=== PATIENT | male | born 1960 | race Caucasian/White ===

== ENCOUNTER → 2017-01-19 | Outpatient (CLI) | payer OTHER | LOC: FLAB 09:41 | PROVIDERS: ATTEND Surgery | DX: Z96.89 Presence of other specified functional implants (principal); R91.1 Solitary pulmonary nodule ==

== ENCOUNTER 2017-05-24 17:27 | Inpatient (IN) | payer OTHER ==
[2017-05-24] MEDS ORDERED: ERTAPENEM 1 GM VIAL IVP ONE (17:47)
--- NOTE | 2017-05-24 17:47 | EDPHY ---
H & P Stated Complaint: Fever,back pain;sent by [facility] with elevated bilirubin Time Seen by Provider: 05/24/17 17:39 - Personal History Current Tetanus Diphtheria and Acellular Pertussis (TDAP): No - Medical/Surgical History Other PMH: pancreatic cancer - Social History Smoking Status: Never smoked Constitutional: Initial Vital Signs Temperature (C) 36.7 C 05/24/17 17:35 Heart Rate 86 05/24/17 17:35 Respiratory Rate 18 05/24/17 17:35 Blood Pressure 96/73 L 05/24/17 17:35 O2 Sat (%) 96 05/24/17 17:35 O2 Delivery Mode Room Air Allergies/Adverse Reactions: azithromycin [From Zithromax] Adverse Reaction (Mild, Verified 05/24/17 17:34) Rash "GD IV contrast" Allergy (Mild, Uncoded 05/24/17 17:34) cough Home Medications: Medication Instructions Recorded Omeprazole [Prilosec 20 mg] 20 mg PO DAILY 05/24/17 Medical Decision Making ED Course/Re-evaluation: CHIEF COMPLAINT: Fever, increasing jaundice, hx pancreatic cancer HISTORY OF PRESENT ILLNESS: The patient is a 57 y/o male with active stage 3 pancreatic adenocarcinoma complaining of fever, chills, and increasing jaundice onset this morning around 09:00, about 9 hours ago. His cancer is currently being treated with radiation and chemotherapy and is considered inoperable and he had a pancreatic duct stent placed in January. This morning he developed acute onset chills, fever, and diffuse sharp abdominal pain. The pain subsided after 10 minutes, but his chills and fever persisted so he went to see his oncologist. He had labs drawn at their office that showed elevated pancreatic and LFT enzymes indicating likely cholangitis. He returned home and around noon had a fever of 102.6F that they treated with Tylenol. His jaundice also appears worse to him and his today. He last ate at 06:45 this morning. He denies nausea, vomiting, diaphoresis, chest pain, dyspnea. REVIEW OF SYSTEMS: A 10 point review of systems was performed and is negative with the exception of the elements mentioned in the history of present illness. PHYSICAL EXAM: HR, BP, O2 Sat, RR. Temp noted General Appearance: Alert, well hydrated, appropriate, and non-toxic appearing. Head: Atraumatic without scalp tenderness or obvious injury Eyes: Pupils equal, round, reactive to light and accommodation, EOMI, no trauma , no injection. Ears: Clear bilaterally, no perforation, normal landmarks Nose: Atraumatic, no rhinorrhea, clear. Throat: There is no erythema or exudates, no lesions, normal tonsils, mucus membranes moist. Neck: Supple,non-tender, no lymphadenopathy. Respiratory: No retractions, no distress, no wheezes, and no accessory muscle use. Lungs are clear to auscultation bilaterally. Cardiovascular: Regular rate and rhythm, no murmurs, rubs, or gallops. Good capillary refill all extremities. Gastrointestinal: Abdomen is soft, non-tender, non-distended, no masses, no rebound, no guarding, no peritoneal signs. Musculoskeletal: Normal active ROM of all extremities, atraumatic. Neurological: Alert, appropriate, and interactive. The patient has non-focal cranial nerves, motor, sensory, and cerebellar exam. Skin: No rashes, good turgor, no nodules on palpation. Jaundiced. PAST MEDICAL HISTORY: Inoperable stage 3 adenocarcinoma treated with radiation and chemotherapy PAST SURGICAL HISTORY: Pancreatic duct stent placed 01/07/17 SOCIAL HISTORY: at bedside. Lives in [place]. Oncologist: Dr. Dukes at [facility]. Reviewed outpatient lab work from today and spoke with [facility] physician prior to pt arrival. DIFFERENTIAL DIAGNOSIS: The differential diagnosis for the patient's fever included but was not limited to pneumonia, urinary tract infection, viral syndrome, meningitis, and sepsis. MEDICAL DECISION MAKING: This is a 57 y/o male with stage 3 pancreatic cancer who presents with a 9-hour history of acute onset fever, chills, and transient abdominal pain. His labs from his oncologist visit today show elevated WBC with left shift, elevated bilirubin, elevated LFTs, and elevated alkaline phosphatase which indicate biliary obstruction and cholangitis that could represent obstruction of his pancreatic stent. He is mildly jaundiced on exam. He has a benign abdomen and is afebrile here. Plan for blood cultures, coag, and lactate here. 1gm IV Ertapenem administered for cholangitis. No further imaging at this time. Patient will require admission. GI paged. 184: GI re-paged after 30 minutes. 1904: GI paged for the 3rd time. 1906: Consulted with RICKEY Hicks. He will follow patient during admission and their group will provide intervention if needed. Spoke with hospitalist service. Dr. Dempsey accepts admission to Med-Surg. - Data Points Laboratory Results: 05/24/17 05/24/17 18:15 16:15 PT 13.1 SEC SEC (12.0-15.0) INR 0.97 (0.83-1.16) APTT 28.9 SEC SEC (23.0-38.0) VBG Lactic Acid 1.2 mmol/L mmol/L (0.7-2.1) Medications Given: Discontinued Medications Ertapenem (Invanz) 1 gm IVP EDNOW ONE PRN Reason: Protocol Stop: 05/24/17 17:48 Last Admin: 05/24/17 18:24 Dose: 1 gm Departure - Departure Disposition: [facility] Inpatient Acute Clinical Impression: Cholangitis, Pancreatic adenocarcinoma Condition: Fair Referrals: RUTH CANTU [Other] - As per Instructions Report Scribed for: Immanuel Solis Report Scribed by: Niyah Biggs Date of Report: 05/24/17 Time of Report: 17:48
[2017-05-24 18:46] LABS: APTT 28.9 SEC (23.0-38.0); INR 0.97 (0.83-1.16); PROTIME(PATIENT) 13.1 SEC (12.0-15.0)
[2017-05-24] MEDS ORDERED: methylPREDNISolone SOD SUCC 125 MG/2 ML VIAL IVP ONE (21:19)
[2017-05-24] MEDS ORDERED: oxyCODONE IR 5 MG TAB PO PRN (21:28)
[2017-05-24] MEDS ORDERED: ONDANSETRON 4 MG/2 ML VIAL IVP PRN (21:28)
[2017-05-24] MEDS ORDERED: ONDANSETRON DISINTEGRATING 4 MG TAB PO PRN (21:28)
[2017-05-24] MEDS ORDERED: ACETAMINOPHEN 325 MG TAB PO PRN (21:28)
--- NOTE | 2017-05-24 22:06 | GHP ---
[f rep st] HISTORY AND PHYSICAL DATE OF ADMISSION: 05/24/2017 CHIEF COMPLAINT: Fever. HISTORY OF PRESENT ILLNESS: This is a 57-year-old man with a history of pancreatic cancer who presen ts with fever. This started today around 11:00, was associated with some fleeting abdominal pain. N o nausea, vomiting, or diarrhea. He took acetaminophen and the fever resolved. He then had labs dra pérez at [facility] concerning for cholangitis and thus presents to the emergency department. He had pancreatic cancer diagnosed this last summer. He had a biliary stent placed due to biliary co mpression, this was done on January 05 at [facility]. He completed his chemo on April 09. He had XRT which completed on May 12. It was initially inoperable however, plan is to hopefully down stage the cancer to an operable level and then surgically resect it with potential for cure. PAST MEDICAL/SURGICAL HISTORY: 1. Pancreatic cancer as above. 2. Basal cell carcinoma. 3. Vasectomy. 4. Rotator cuff surgery in 2012. MEDICATIONS: Please see medication reconciliation. ALLERGIES: Azithromycin and gadolinium. SOCIAL HISTORY: He lives at home with his . He does not drink or smoke. FAMILY HISTORY: Multiple cancers in his family. REVIEW OF SYSTEMS: A 10-point review of systems is conducted and is negative except per HPI. PHYSICAL EXAM: VITAL SIGNS: Blood pressure 99/66, heart rate 72, respiration rate 18, saturating 93 % on room air. Temperature is 37.4. GENERAL: The patient is a very pleasant man who appears comfor table, no acute distress. HEENT: Shows him to be positive for scleral icterus. CARDIOVASCULAR: Re gular rate and rhythm. There is a 1/6 systolic murmur. PULMONARY: Lungs clear to auscultation bila terally. ABDOMEN: Soft, nontender, nondistended. He has some mild right upper quadrant fullness. SKIN: Shows no rash. : No Peterson. NEUROLOGIC: Shows him to be alert and oriented x3. He is mov ing all extremities. PSYCHIATRIC: Shows normal mood and affect. LABS: White count is 12, platelets 141, INR is normal. Lactate 1.2. Bilirubin is 5.3, AST is 239, ALT is 261, alkaline phosphatase is 596. DATA: I discussed this with both Drs. Solis and Bebe. IMPRESSION/PLAN: 1. Suspected cholangitis. This could also represent cholecystitis though seems less likely. Dr. Robin yañez is involved. This potentially may represent an occluded stent, also could represent enlargement of the pancreatic cancer. Agree with MRCP. He may need ERCP with stent replacement based on the fi ndings. He is n.p.o. after midnight. He will get IV Invanz. Blood cultures have been drawn and are pending at this time. This is a high-risk diagnosis. 2. Gadolinium contrast: He described this as gastrointestinal in nature with retching. Also had so me coughing. No problems breathing however. I will pre treat him with methylprednisolone as well as Benadryl. 3. Gastroesophageal reflux disease: Omeprazole. 4. Pancreatic cancer: As above. Follows with Dr. Dukes. CODE STATUS: He elected to be full. /[id number]/MODL
[2017-05-24] MEDS: 1/2 NS 1,000 ML IV SCH (22:18)
[2017-05-25 05:19] LABS: % IMMATURE GRANULYOCYTES 0.6 % (0.0-1.1); ABSOLUTE IMMATURE GRANULOCYTES 0.05 10^3/uL (0.00-0.10); ADD DIFF? NO; ADD MORPH? NO; ADD SCAN? NO; ATYPICAL LYMPHOCYTE FLAG 0 (0-99); FRAGMENT RBC FLAG 0 (0-99); HEMATOCRIT 37.2 % (40.0-51.0); HEMOGLOBIN 12.8 g/dL (13.7-17.5); LEFT SHIFT FLG 0 (0-99); LIPEMIA HEMOLYSIS FLAG 90 (0-99); MEAN CELL HEMOGLOBIN 32.4 pg (27.9-34.1); MEAN CELL HEMOGLOBIN CONCENTR. 34.4 g/dL (32.4-36.7); MEAN CELL VOLUME 94.2 fL (81.5-99.8); MEAN PLATELET VOLUME 11.2 fL (8.7-11.7); PLATELET CLUMPS FLAG 0 (0-99); PLATELET COUNT 110 10^3/uL (150-400); RED BLOOD CELL COUNT 3.95 10^6/uL (4.40-6.38); RED CELL DISTRIBUTION WIDTH 13.8 % (11.5-15.2)
[2017-05-25 05:30] LABS: INR 1.07 (0.83-1.16); PROTIME(PATIENT) 14.1 SEC (12.0-15.0)
--- NOTE | 2017-05-25 06:04 | GCON ---
[f rep st] CONSULTATION INPATIENT CONSULTATION REQUESTING PHYSICIAN: Dr. Sheldon Dempsey. REASON FOR CONSULTATION: Abdominal pain and abnormal liver tests. CHIEF COMPLAINT: Abdominal pain. HISTORY OF PRESENT ILLNESS: Briefly, the patient is a pleasant 57-year-old male with a past medical history significant for pancreatic cancer. This was diagnosed in the summer of 2016. He is status p ost metal biliary stent, rounds of chemo, as well as x-ray beads. He has been overall doing well. T meek, he had a gradual onset of fever and chills associated with weakness. He began to have mild abd ominal discomfort. He was seen in his oncology office for laboratory testing, was concerning for robert e duct obstruction. He was referred to the emergency room for evaluation. He reports some fevers an d some chills. He had a documented temperature at home of 102. He has had temperature in the emerge ncy room as well. PAST MEDICAL HISTORY: Includes pancreatic cancer. SOCIAL HISTORY: Does not smoke. He does not drink alcohol. He does not use drugs. ALLERGIES: Azithromycin and to IV contrast. HOME MEDICATIONS: Prilosec. FAMILY HISTORY: Negative for pancreas cancer. REVIEW OF SYSTEMS: A complete 10-system review was undertaken with the patient and is negative excep t for those details described in the history of present illness. PHYSICAL EXAM: GENERAL: This is a well-developed male, in no apparent distress. HEENT: His pupils are equal, round, reactive to light and accommodation. There is very mild scleral icterus. NECK: Supple without lymphadenopathy. RESPIRATORY: Shows normal respiratory effort with lungs that are cl ear to auscultation bilaterally. CARDIOVASCULAR: Reveals normal rate and rhythm without murmurs, ru bs, or gallops. GI: Reveals soft, nontender abdomen without distention. MUSCULOSKELETAL: Reveals normal range of motion. NEURO: Grossly nonfocal. SKIN: Warm and dry without rash. JOINT: Shows no arthritis. PSYCH: Reveals normal mood and affect. LABORATORY TESTING: White count of 12.18, hemoglobin of 14.3, hematocrit of 41.5, platelet count of 141, INR 0.97. Sodium of 140, potassium of 3.7, chloride of 104, bicarb of 22, BUN of 12, creatinine of 0.8, total bilirubin of 5.1 on conjugated bilirubin of 2.4, conjugated bilirubin of 2.9, AST of 2 39, ALT of 261, alkaline phosphatase of 596. Lipase of 14, CA 99 is pending. IMPRESSION AND RECOMMENDATIONS: The patient is admitted to the hospital with fever and abnormal live r function testing. In the setting of metal biliary stent for management of pancreatic cancer, bile duct obstruction and cholangitis is high on the differential diagnosis. The differential could also include other forms of hepatitis or cholecystitis. At this time, I recommend the patient be admitted , treated with antibiotics, and undergo some additional biliary workup. We will start with MRI chola ngiography in order to evaluate the stent, rule out choledocholithiasis, and evaluate the gallbladder , as well as the pancreatic head. Pending the results of that exam, we could consider additional olimpia ging. I suspect that he will benefit from ERCP with manipulation, change, of his stent. /[id number]/MODL
[2017-05-25 06:16] LABS: ALANINE AMINOTRANSFERASE 220 IU/L (21-72); ALKALINE PHOSPHATASE 463 IU/L (38-126); ANION GAP 10 mEq/L (8-16); ASPARTATE AMINOTRANSFERASE 165 IU/L (17-59); BILIRUBIN,TOTAL 6.2 mg/dL (0.1-1.4); BILIRUBIN-CONJUGATED 3.1 mg/dL (0.0-0.5); BILIRUBIN-UNCONJUGATED 3.1 mg/dL (0.0-1.1); CARBON DIOXIDE 25 mEq/l (22-31); CHLORIDE 105 mEq/L (97-110); CREATININE 0.7 mg/dL (0.7-1.3); GLOMERULAR FILTRATION RATE > 60; GLUCOSE 99 mg/dL (70-100); POTASSIUM 3.7 mEq/L (3.5-5.2); SODIUM 140 mEq/L (134-144); TOTAL PROTEIN 5.8 g/dL (6.3-8.2)
[2017-05-25] MEDS ORDERED: methylPREDNISolone SOD SUCC 125 MG/2 ML VIAL IVP ONE (06:45)
[2017-05-25] MEDS ORDERED: GADOBUTROL 10 ML VIAL IVP ONE (08:04)
[2017-05-25] MEDS: ERTAPENEM 1 GM VIAL IVP SCH (10:07)
[2017-05-25] MEDS: PANTOPRAZOLE SODIUM 40 MG TAB PO SCH (10:08)
--- NOTE | 2017-05-25 11:48 | PDMN ---
Medical Necessity Medical necessity: Patient meets inpatient criteria per physician note and [facility] (severe tumor-related complications: history of Stage III pancreatic CA and biliary stent placed in Jan, 2017, w/onset of fever, fleeting abd pain; labs drawn at [facility] concerning for cholangitis; anticipated LOS > 2 midnights for MRI results w/poss ERCP and new stent placement and ongoing IV antibiotics, hydration, prn antiemetics.)
--- NOTE | 2017-05-25 13:35 | HOSPPROG ---
Hospitalist Progress Note Assessment/Plan: DIAGNOSES: -acute biliary obstruction and suspected cholangitis related to that with fever -rising bilirubin related to above -pancreatic cancer, ongoing chemotherapy with plans for future resection I have spoken with the patient and his in detail about his situation and recommended plan of care. I reviewed his case in detail with Dr. Carey and Dr. Spence. At this point he is scheduled for an ERCP with attempted stent removal and replacement this evening. For now will continue current antibiotics and follow cultures. Will have to follow closely after his procedure in terms of the course of his infection and its complications and laboratory data including his bilirubin. SUBJECTIVE: Patient feels notably better after antibiotics overnight. Is hungry but does have significant malaise no nausea, no little pain today OBJECTIVE Vitals reviewed: T-max 38.7degrees overnight, stable vital signs otherwise Vegetable Grader, my review: Exam: alert oriented skin warm dry color some jaundice, no bleeding or bruising resps not labored lungs clear BSs heart regular abd soft nondistended mild epigastric tenderness, bowel sounds present limbs warm, no edema iv site ok Lab data: CBC, basic met panel, liver panel reviewed Bilirubin up to 6, still with elevated liver enzymes alkaline phosphatase 460 Otherwise stable Microbiology data: Cultures pending with no growth reported to date Objective: Vital Signs Temp Pulse Resp BP Pulse Ox 36.6 C 75 16 118/77 93 05/25/17 12:16 05/25/17 12:16 05/25/17 12:16 05/25/17 12:16 05/25/17 12:16 Laboratory Results 05/25/17 05:00 05/25/17 05:00 05/24/17 05/25/17 05/26/17 06:59 06:59 06:59 Intake Total 506 Balance 506 PT 14.1 SEC (12.0-15.0) 05/25/17 05:00 INR 1.07 (0.83-1.16) 05/25/17 05:00 - Time Spent With Patient Time Spent with Patient: greater than 35 minutes Time Spent with Patient: Greater than 35 minutes spent on this patients care, greater than 50% of time spent counseling, educating, and coordinating care regarding the above mentioned plan. ICD10 Worksheet Patient Problems: Problems Problem Status Onset Cholangitis Acute Pancreatic adenocarcinoma Acute
--- NOTE | 2017-05-25 13:57 | SOAPPROG ---
SOAP Progress Note Assessment/Plan: Assessment: 1. Pancreatic Cancer - s/p metal stent placement - recent XRT - admitted with cholangitis - MRCP w/o alternate explanation - discussed with XRT MD (Dr. Vasques) from [facility]. She suggests that obstruction may be temporary and XRT induced. And if resolving with Abx alone, may not need stent manipulation Plan: 1. Cholangitis - continue IV antibiotics - follow LFTs daily - pending clinical course can consider dc home on oral antibiotics, vs intervention with ERCP - will follow, call with questions - pencilled in for ERCP tomorrow evening (npo after breakfast), just in case this is needed - may cancel if continues to impression 40 min spent in coordination of patient care - at the bedside, review results, and in conversation of treating MDs 05/25/17 13:59 Subjective: CC: f/u cholangitis S: doing better no fever overnight feeling hungry no nausea no vomiting less abd pain Objective: Vital Signs Temp Pulse Resp BP Pulse Ox 36.6 C 75 16 118/77 93 05/25/17 12:16 05/25/17 12:16 05/25/17 12:16 05/25/17 12:16 05/25/17 12:16 Laboratory Results 05/25/17 05:00 05/25/17 05:00 05/24/17 05/25/17 05/26/17 05:59 05:59 05:59 Intake Total 506 Balance 506 PT 14.1 SEC (12.0-15.0) 05/25/17 05:00 INR 1.07 (0.83-1.16) 05/25/17 05:00 Laboratory Tests 05/25/17 05:00 Total Bilirubin 6.2 H Conjugated Bilirubin 3.1 H Unconjugated Bilirubin 3.1 H AST 165 H ALT 220 H Alkaline Phosphatase 463 H Physical Exam - Physical Exam General Appearance: alert EENT: PERRL/EOMI, scleral icterus (R), scleral icterus (L) Respiratory: lungs clear, normal breath sounds Cardiac/Chest: normal peripheral pulses, regular rate, rhythm, No edema Abdomen: normal bowel sounds, non-tender, soft Skin: warm/dry, jaundice, No cyanosis Extremities: normal range of motion Neuro/Psych: no motor/sensory deficits ICD10 Worksheet Patient Problems: Problems Problem Status Onset Cholangitis Acute Pancreatic adenocarcinoma Acute
[2017-05-25] MEDS: 1/2 NS 1,000 ML IV SCH (14:18)
--- NOTE | 2017-05-25 16:22 | ASMTCMCOM ---
CM Note CM Note Notes: Pt was admitted with fever and cholangitis. He has hx of pancreatic CA. Possible ERCP planned with stent replacement. Pt is currently on IV invanz. Anticipate d/c with no CM needs but will continue to follow for any change in d/c needs. Date Signed: 05/25/2017 04:22 PM Electronically Signed By:ROWAN Jefferson
[2017-05-26] MEDS: 1/2 NS 1,000 ML IV SCH (03:01)
[2017-05-26 03:18] LABS: % IMMATURE GRANULYOCYTES 0.5 % (0.0-1.1); ABSOLUTE IMMATURE GRANULOCYTES 0.05 10^3/uL (0.00-0.10); ADD DIFF? NO; ADD MORPH? NO; ADD SCAN? NO; ATYPICAL LYMPHOCYTE FLAG 10 (0-99); FRAGMENT RBC FLAG 0 (0-99); HEMATOCRIT 36.5 % (40.0-51.0); HEMOGLOBIN 12.7 g/dL (13.7-17.5); LEFT SHIFT FLG 0 (0-99); LIPEMIA HEMOLYSIS FLAG 90 (0-99); MEAN CELL HEMOGLOBIN 32.5 pg (27.9-34.1); MEAN CELL HEMOGLOBIN CONCENTR. 34.8 g/dL (32.4-36.7); MEAN CELL VOLUME 93.4 fL (81.5-99.8); MEAN PLATELET VOLUME 11.3 fL (8.7-11.7); PLATELET CLUMPS FLAG 20 (0-99); PLATELET COUNT 130 10^3/uL (150-400); RED BLOOD CELL COUNT 3.91 10^6/uL (4.40-6.38); RED CELL DISTRIBUTION WIDTH 13.4 % (11.5-15.2)
[2017-05-26 03:27] LABS: ALANINE AMINOTRANSFERASE 177 IU/L (21-72); ALBUMIN 2.9 g/dL (3.5-5.0); ALKALINE PHOSPHATASE 422 IU/L (38-126); ANION GAP 9 mEq/L (8-16); ASPARTATE AMINOTRANSFERASE 102 IU/L (17-59); BILIRUBIN,TOTAL 2.9 mg/dL (0.1-1.4); BILIRUBIN-CONJUGATED 1.1 mg/dL (0.0-0.5); BILIRUBIN-UNCONJUGATED 1.8 mg/dL (0.0-1.1); CARBON DIOXIDE 23 mEq/l (22-31); CHLORIDE 106 mEq/L (97-110); CREATININE 0.7 mg/dL (0.7-1.3); GLOMERULAR FILTRATION RATE > 60; GLUCOSE 116 mg/dL (70-100); POTASSIUM 4.1 mEq/L (3.5-5.2); SODIUM 138 mEq/L (134-144); TOTAL PROTEIN 5.7 g/dL (6.3-8.2)
--- NOTE | 2017-05-26 08:30 | SOAPPROG ---
SOAP Progress Note Assessment/Plan: Assessment: 1. Pancreatic Cancer - s/p metal stent placement - recent XRT - admitted with cholangitis - labs improving, no more fever, increased appetite - bile obstruction may be temporary, self limited, inflammation from recent XRT , and therefore may resolve with conservative therapy. Plan: 1. Cholangitis - ok to advance diet - ok to dc home on oral antibiotics if tolerated po intake through the day - will need to dc with copies of labs, notes, imaging to bring home - recommend 2 week course of levo/flagyl as outpt mgt of resolving cholangitis - pt will f/u with Dr. Vasques (rad onc) at [facility] 05/26/17 08:31 Subjective: CC: f/u cholangitits S: doing better no pain no fever anxious to eat wants to dc home, if we feel it is safe Objective: Vital Signs Temp Pulse Resp BP Pulse Ox 36.4 C 63 18 100/65 91 L 05/26/17 04:00 05/26/17 04:00 05/26/17 04:00 05/26/17 04:00 05/26/17 04:00 Laboratory Results 05/26/17 03:06 05/26/17 03:06 05/25/17 05/26/17 05/27/17 05:59 05:59 05:59 Intake Total 506 1914 Balance 506 1914 PT 14.1 SEC (12.0-15.0) 05/25/17 05:00 INR 1.07 (0.83-1.16) 05/25/17 05:00 Laboratory Tests 05/25/17 05/26/17 05/26/17 05:00 03:06 03:06 WBC 9.46 Hgb 12.7 L Hct 36.5 L Sodium 138 Potassium 4.1 Chloride 106 Carbon Dioxide 23 BUN 17 Creatinine 0.7 Total Bilirubin 6.2 H 2.9 H D Conjugated Bilirubin 3.1 H 1.1 H Unconjugated Bilirubin 3.1 H 1.8 H AST 165 H 102 H ALT 220 H 177 H Alkaline Phosphatase 463 H 422 H Physical Exam - Physical Exam General Appearance: alert, no apparent distress EENT: PERRL/EOMI, No scleral icterus (R), No scleral icterus (L) Neck: non-tender, supple Respiratory: chest non-tender, lungs clear, normal breath sounds Cardiac/Chest: normal peripheral pulses, regular rate, rhythm, No edema Abdomen: normal bowel sounds, non-tender, soft, No organomegaly Skin: normal color Extremities: normal range of motion Neuro/Psych: no motor/sensory deficits ICD10 Worksheet Patient Problems: Problems Problem Status Onset Cholangitis Acute Pancreatic adenocarcinoma Acute
[2017-05-26] MEDS: PANTOPRAZOLE SODIUM 40 MG TAB PO SCH (08:31)
[2017-05-26] MEDS: ERTAPENEM 1 GM VIAL IVP SCH (08:31)
[2017-05-26 09:40] VITALS: RESP 15
[2017-05-26 12:52] VITALS: BP 117/69; PULSE 73; TEMP 97.6; O2SAT 97
--- NOTE | 2017-05-26 15:51 | ASMTCMCOM ---
CM Note CM Note Notes: Pt ready for DC. He has switched to oral ABX. No other DC needs identified. Date Signed: 05/26/2017 03:51 PM Electronically Signed By:Eileen Chiu LCSW
--- NOTE | 2017-05-26 18:53 | PDDCSUM ---
Discharge Summary Discharge Summary: DISCHARGE DIAGNOSES: -acute biliary obstruction and probable mild cholangitis without sepsis -pancreatic carcinoma, status post chemotherapy, with stent in place and status post recent radiation therapy with last treatment approximately a week ago CONSULTANTS: Dr. Belgica Ro PROCEDURES: MRCP HOSPITAL COURSE SUMMARY: This patient with pancreatic carcinoma and a biliary stent in place, recently received some radiation therapy. He comes in at this time with jaundice and fever nausea vomiting inability eat. He was treated with antibiotics and had an excellent response. His high bilirubin here was at 6 and it has come down to less than 3 today. His fevers are gone his symptoms resolved he is quite hungry and eating well, getting up and ambulating well. Vital signs are normal. His exam is really unremarkable. He had had an MRCP here showing obstruction of his biliary stent with foot possibly look like tumor. However upon review with his radiation oncologist at the [facility] in [place] it was felt that likely edema swelling and other changes related to radiation had led to this episode. His legs he was getting better was felt that he could be treated conservatively and there was no attempt at changing of his stent here which had been considered originally. PENDING TEST RESULTS: None MEDICATION CHANGES: Addition of Levaquin 750 mg daily and Flagyl 500 mg twice daily for completion of a 10 day course of treatment FOLLOW-UP PLAN: With his radiation oncologist in [place] this coming week Greater than 35 minutes bedside and care coordination time today
--- NOTE | 2017-05-27 14:30 | ASDISCHSUM ---
Discharge Information Plan Status: Medically Cleared to Leave: Discharge Date:05/26/2017 05:51 PM D/C Disposition: ADT D/C Disposition:Home, Routine, Self-Care Projected Discharge Date:05/26/2017 05:51 PM Transportation at D/C: Discharge Delay Reason: Follow-Up Date:05/26/2017 05:51 PM Discharge Slot: Final Diagnosis: Placement Information Patient Contact Information Contact Name:RUDDY Relationship: Address:[address] [place] [address] City:[place] Alternate Phone: State/Zip Code:[place] [address] Email: Financial Information Financial Class:HMO and PPO Plans Primary Plan Desc:[place] Primary Plan Number:[id number] Secondary Plan Desc: Secondary Plan Number: Assessment Information [facility] CM Progress Note CM Note CM Note Notes: Pt was admitted with fever and cholangitis. He has hx of pancreatic CA. Possible ERCP planned with stent replacement. Pt is currently on IV invanz. Anticipate d/c with no CM needs but will continue to follow for any change in d/c needs. Date Signed: 05/25/2017 04:22 PM Electronically Signed By:ROWAN Jefferson [facility] CM Progress Note CM Note CM Note Notes: Pt ready for DC. He has switched to oral ABX. No other DC needs identified. Date Signed: 05/26/2017 03:51 PM Electronically Signed By:Eileen Chiu LCSW Intervention Information
== END 2017-05-26 17:51 | disposition home or self-care (01) | DRG 444 ==
LOC: F1N 20:30
PROVIDERS: ADMIT Student in an Organized Health Care Education/Training Program; ATTEND Student in an Organized Health Care Education/Training Program
DX: K83.0 Cholangitis (principal); K83.1 Obstruction of bile duct; C25.9 Malignant neoplasm of pancreas, unspecified; K21.9 Gastro-esophageal reflux disease without esophagitis
CPT/HCPCS: A9585; J1335; J1642; J2930

== ENCOUNTER → 2017-11-30 | Outpatient (CLI) | payer OTHER | LOC: FIMAGING 09:00 | PROVIDERS: ATTEND Physician Assistant | DX: J18.9 Pneumonia, unspecified organism (principal) ==

== ENCOUNTER 2018-05-07 16:07 | Emergency (ER) | payer OTHER ==
[2018-05-07] MEDS ORDERED: GASTROVIEW 30 ML UNIT PO ONE (17:27)
[2018-05-07] MEDS ORDERED: NS 1,900 ML IV ONE (17:27)
--- NOTE | 2018-05-07 17:37 | EDPHY ---
H & P Stated Complaint: HX COLONOSTOMY/POLYP REMOVAL 04/22 TODAY DEVELOPED FEVER Time Seen by Provider: 05/07/18 17:21 HPI/ROS: CHIEF COMPLAINT: Fever, fatigue HISTORY OF PRESENT ILLNESS: The patient is a 58-year-old man survivor pancreatic cancer. He had a Whipple done in July of this year and then receive chemotherapy until December. His most recent scans were cancer free. He is followed at the [facility]. Today around 9 or 10:00 a.m. he developed a mild headache as well as chills and dizziness. He went back to bed. His checked his temperature and has 102.6. No altered mental status. No abdominal pain. No vomiting or diarrhea. No chest pain or shortness of breath. No cough. No sore throat or sinus congestion and cetera. No urinary symptoms. The patient did have his Creon increased a few weeks ago because he was having large amounts of gas. Also he had a colonoscopy 2 weeks ago and had a polyp removed. Otherwise he has had no significant changes in his therapy. He does have a port in place. Severity: Moderate Modifying factors: His fever resolved with Tylenol that his gave him 2 hr ago. REVIEW OF SYSTEMS: Constitutional: See HPI EENTM: denies: blurred vision, double vision, nose congestion Respiratory: denies: cough, shortness of breath Cardiac: denies: chest pain, irregular heart rate, lightheadedness, palpitations Gastrointestinal/Abdominal: denies: abdominal pain, diarrhea, nausea, vomiting, blood streaked stools Genitourinary: denies: dysuria, frequency, hematuria, pain Musculoskeletal: denies: joint pain, muscle pain Skin: denies: lesions, rash, jaundice, bruising Neurological: See HPI denies:numbness, paresthesia, tingling, weakness Hematologic/Lymphatic: denies: blood clots, easy bleeding, easy bruising Immunologic/allergic: denies: HIV/AIDS, transplant 10 systems reviewed and negative except as noted EXAM: GENERAL: Well-appearing, well-nourished and in no acute distress. HEAD: Atraumatic, normocephalic. EYES: Pupils equal round and reactive to light, extraocular movements intact, sclera anicteric, conjunctiva are normal. ENT: TMs normal, nares patent, oropharynx clear without exudates. Moist mucous membranes. NECK: Normal range of motion, supple without lymphadenopathy or JVD. LUNGS: Breath sounds clear to auscultation bilaterally and equal. No wheezes rales or rhonchi. HEART: Regular rate and rhythm without murmurs, rubs or gallops. ABDOMEN: Soft, nontender, normoactive bowel sounds. No guarding, no rebound. No masses appreciated. BACK: No CVA tenderness, no spinal tenderness, step-offs or deformities EXTREMITIES: Normal range of motion, no pitting or edema. No clubbing or cyanosis. NEUROLOGICAL: Cranial nerves II through XII grossly intact. Normal speech, normal gait. 5/5 strength, normal movement in all extremities, normal sensation , normal reflexes PSYCH: Normal mood, normal affect. SKIN: Warm, dry, normal turgor, no visible rashes or lesions. Source: Patient Exam Limitations: No limitations - Personal History Current Tetanus Diphtheria and Acellular Pertussis (TDAP): Unsure - Medical/Surgical History Hx Asthma: No Hx Chronic Respiratory Disease: No Hx Diabetes: No Hx Cardiac Disease: No Hx Renal Disease: No Hx Cirrhosis: No Hx Alcoholism: No Hx HIV/AIDS: No Hx Splenectomy or Spleen Trauma: No Other PMH: pancreatic cancer jan 05 2017 - Social History Smoking Status: Never smoked Constitutional: Initial Vital Signs Temperature (C) 37.3 C 05/07/18 16:20 Heart Rate 66 05/07/18 16:20 Respiratory Rate 18 05/07/18 16:20 Blood Pressure 100/57 L 05/07/18 16:20 O2 Sat (%) 95 05/07/18 16:20 O2 Delivery Mode Room Air Allergies/Adverse Reactions: azithromycin [From Zithromax] Allergy (Mild, Verified 05/07/18 16:19) Rash Gadolinium-Containing Contrast Medi Allergy (Mild, Verified 05/07/18 16:19) Vomiting Home Medications: Medication Instructions Recorded Creon 12 (*) 05/07/18 Medical Decision Making - Diagnostics Imaging Results: Imaging Impressions Abdomen CT 05/07/18 17:29 Impression: 1. New small segmental portal vein thrombosis in the right lobe of the liver since June 2017 with associated perfusion abnormality. The majority of the portal venous system is widely patent. 2. Hepatic steatosis. No evidence of liver metastasis or biliary obstruction. 3. Post Whipple anatomy, unchanged since June 2017. No evidence of local regional recurrence at the pancreatic resection margin. 4. No obstruction or adynamic ileus. Sigmoid diverticulosis is unchanged. Findings discussed with the emergency department physician, Dany Horner MD on May 07, 2018 at 1950 hours. Chest X-Ray 05/07/18 17:30 Impression: Clear lungs. No pneumonia or effusion. Imaging: Discussed imaging studies w/ job compositor Radiologist ED Course/Re-evaluation: 8:00 p.m. I spoke with the patient and his again about the lab results and CT. They are reassured. The portal vein thrombosis old. The has an old CT report with her and is the same location in dimensions. Her oncologist is aware. They are somewhat hesitant to proceed with lumbar puncture which we discussed initially. He has not had a headache or fever since arriving here. The thinks that his headache was from dehydration. No neck stiffness. No other obvious source for fever. 8:40 p.m. I spoke with Dr. Jade Judge who is on-call for Dr. Dukes. She agrees with the plan thus far. She agrees with discharge. She agrees that LP is probably not necessary at this point. She is on-call weak and is happy to speak with the patient and if he feels worse. We discussed indications for returning. Differential Diagnosis: Partial list of the Differential diagnosis considered include but were not limited to; fever, dehydration, viral syndrome and although unlikely based on the history and physical exam, I also considered meningitis, sepsis, urinary tract infection, perforation, ischemia. I discussed these differential diagnoses and the plan with the patient as well as the usual and expected course. The patient understands that the diagnosis is provisional and that in medicine we are not always correct and that further workup is often warranted. Usual and customary warnings were given. All of the patient's questions were answered. The patient was instructed to return to the emergency department should the symptoms at all worsen or return, otherwise to followup with the physician as we discussed. - Data Points Laboratory Results: Laboratory Results 05/07/18 18:00 05/07/18 18:00 05/07/18 05/07/18 05/07/18 19:00 18:00 18:00 WBC RBC Hgb Hct MCV MCH MCHC RDW Plt Count MPV Neut % (Auto) Lymph % (Auto) [place] % (Auto) Eos % (Auto) Baso % (Auto) Nucleat RBC Rel Count Absolute Neuts (auto) Absolute Lymphs (auto) Absolute Monos (auto) Absolute Eos (auto) Absolute Basos (auto) Absolute Nucleated RBC Immature Gran % Immature Gran # PT 14.0 SEC SEC (12.0-15.0) INR 1.06 (0.83-1.16) APTT 26.3 SEC SEC (23.0-38.0) VBG Lactic Acid 1.3 mmol/L mmol/L (0.7-2.1) Sodium Potassium Chloride Carbon Dioxide Anion Gap BUN Creatinine Estimated GFR Glucose Calcium Total Bilirubin Conjugated Bilirubin Unconjugated Bilirubin AST ALT Alkaline Phosphatase Total Protein Albumin Lipase Urine Color YELLOW Urine Appearance CLEAR Urine pH 5.0 (5.0-7.5) Ur Specific [place] 1.013 (1.002-1.030) Urine Protein NEGATIVE (NEGATIVE) Urine Ketones TRACE H (NEGATIVE) Urine Blood NEGATIVE (NEGATIVE) Urine Nitrate NEGATIVE (NEGATIVE) Urine Bilirubin NEGATIVE (NEGATIVE) Urine Urobilinogen NEGATIVE EU EU (0.2-1.0) Ur Leukocyte Esterase NEGATIVE (NEGATIVE) Urine RBC 1-3 /hpf /hpf (0-3) Urine WBC 1-3 /hpf /hpf (0-3) Ur Epithelial Cells TRACE /lpf /lpf (NONE-1+) Urine Mucus 3+ /lpf H /lpf (NONE-1+) Urine Glucose NEGATIVE (NEGATIVE) Nasal Influenza A PCR Nasal Influenza B PCR 05/07/18 05/07/18 05/07/18 18:00 18:00 17:55 WBC 10.17 10^3/uL H 10^3/uL (3.80-9.50) RBC 4.85 10^6/uL 10^6/uL (4.40-6.38) Hgb 14.9 g/dL g/dL (13.7-17.5) Hct 43.2 % % (40.0-51.0) MCV 89.1 fL fL (81.5-99.8) MCH 30.7 pg pg (27.9-34.1) MCHC 34.5 g/dL g/dL (32.4-36.7) RDW 13.1 % % (11.5-15.2) Plt Count 186 10^3/uL 10^3/uL (150-400) MPV 11.0 fL fL (8.7-11.7) Neut % (Auto) 84.1 % H % (39.3-74.2) Lymph % (Auto) 7.5 % L % (15.0-45.0) [place] % (Auto) 7.3 % % (4.5-13.0) Eos % (Auto) 0.1 % L % (0.6-7.6) Baso % (Auto) 0.3 % % (0.3-1.7) Nucleat RBC Rel Count 0.0 % % (0.0-0.2) Absolute Neuts (auto) 8.56 10^3/uL H 10^3/uL (1.70-6.50) Absolute Lymphs (auto) 0.76 10^3/uL L 10^3/uL (1.00-3.00) Absolute Monos (auto) 0.74 10^3/uL 10^3/uL (0.30-0.80) Absolute Eos (auto) 0.01 10^3/uL L 10^3/uL (0.03-0.40) Absolute Basos (auto) 0.03 10^3/uL 10^3/uL (0.02-0.10) Absolute Nucleated RBC 0.00 10^3/uL 10^3/uL (0-0.01) Immature Gran % 0.7 % % (0.0-1.1) Immature Gran # 0.07 10^3/uL 10^3/uL (0.00-0.10) PT INR APTT VBG Lactic Acid Sodium 140 mEq/L mEq/L (135-145) Potassium 3.5 mEq/L mEq/L (3.3-5.0) Chloride 105 mEq/L mEq/L (97-110) Carbon Dioxide 25 mEq/l mEq/l (22-31) Anion Gap 10 mEq/L mEq/L (6-14) BUN 14 mg/dL mg/dL (7-23) Creatinine 1.0 mg/dL mg/dL (0.7-1.3) Estimated GFR > 60 Glucose 106 mg/dL H mg/dL (70-100) Calcium 8.8 mg/dL mg/dL (8.5-10.4) Total Bilirubin 3.0 mg/dL H mg/dL (0.1-1.4) Conjugated Bilirubin 0.1 mg/dL mg/dL (0.0-0.5) Unconjugated Bilirubin 2.9 mg/dL H mg/dL (0.0-1.1) AST 41 IU/L IU/L (17-59) ALT 59 IU/L IU/L (21-72) Alkaline Phosphatase 116 IU/L IU/L (38-126) Total Protein 6.3 g/dL g/dL (6.3-8.2) Albumin 3.8 g/dL g/dL (3.5-5.0) Lipase < 10 IU/L L IU/L (23-300) Urine Color Urine Appearance Urine pH Ur Specific [place] Urine Protein Urine Ketones Urine Blood Urine Nitrate Urine Bilirubin Urine Urobilinogen Ur Leukocyte Esterase Urine RBC Urine WBC Ur Epithelial Cells Urine Mucus Urine Glucose Nasal Influenza A PCR NEGATIVE FOR FLU A (NEGATIVE) Nasal Influenza B PCR NEGATIVE FOR FLU B (NEGATIVE) Medications Given: Discontinued Medications Diatrizoate Meglum/Diatrizoate Sod (Gastroview 66-10 Soln) 30 ml PO EDNOW ONE Stop: 05/07/18 17:28 Last Admin: 05/07/18 18:26 Dose: 30 ml Sodium Chloride (Ns) 1,900 mls @ 3,800 mls/hr 30 ml/kg infuse over 30 min ( 1900 ml) IV EDNOW ONE PRN Reason: Protocol Stop: 05/07/18 17:56 Last Admin: 05/07/18 18:25 Dose: 1,900 mls Departure - Departure Disposition: Home, Routine, Self-Care Clinical Impression: Dehydration Fever Qualifiers: Fever type: unspecified Qualified Code(s): R50.9 - Fever, unspecified Condition: Fair Instructions: Dehydration (ED), Fever in Adults (ED) Referrals: Alpesh Ordaz [Primary Care Provider] - As per Instructions Andry Dukes MD [Medical Doctor] - 1 day, if not improved
[2018-05-07 18:19] LABS: PLATELET COUNT 186 10^3/uL (150-400)
[2018-05-07 18:26] LABS: INR 1.06 (0.83-1.16)
[2018-05-07] MEDS ORDERED: IOPAMIDOL (ISOVUE-300) 100 ML BTL ONE (19:16)
[2018-05-07 21:13] VITALS: BP 117/84
== END 2018-05-07 21:13 | disposition home or self-care (01) ==
DX: R50.9 Fever, unspecified (principal); R53.83 Other fatigue; E86.0 Dehydration
CPT/HCPCS: 86301-90; Q9967

== ENCOUNTER 2018-05-08 05:20 | Inpatient (IN) | payer OTHER ==
[2018-05-08] MEDS ORDERED: NS 1,900 ML IV ONE (05:44)
[2018-05-08 06:10] LABS: PLATELET COUNT 165 10^3/uL (150-400)
[2018-05-08] MEDS ORDERED: MEROPENEM 1 GM in NS 100 ML IV ONE (06:52)
[2018-05-08] MEDS ORDERED: ONDANSETRON 4 MG/2 ML VIAL IVP PRN (06:53)
[2018-05-08] MEDS ORDERED: ONDANSETRON DISINTEGRATING 4 MG TAB PO PRN (06:53)
--- NOTE | 2018-05-08 07:24 | EDPHY ---
H & P Stated Complaint: fever recurrent at home Time Seen by Provider: 05/08/18 06:21 HPI/ROS: HPI The patient presents with recurrent fever as high as 103.8 F today at approximately a 4:10 a.m.. The patient was seen in the emergency department yesterday for a fever and had a comprehensive workup including CT scan of his abdomen with contrast, chest x-ray, basic labs, flu swab, UA. His testing was unremarkable and he felt better in the emergency department so he was discharged home. When he got home he felt relatively well, had some soup for dinner and went to bed. At about 2:00 a.m. His felt him shaking next to her in bed. Then at 4:10 a.m. He had an episode which lasted for about 30-40 minutes of shaking uncontrollable chills. She checked his temperature at this time and it was 103.8 F. Ibuprofen was given prior to arrival. The patient has a history of pancreatic cancer status post Whipple procedure in July of 2017. He finished chemotherapy treatments in December. He has been feeling relatively well lately. His was sick with a mild fever and rash in mid April though has improved. He does not have any other sick contacts. There was some concern for ASSISTANT PRINCIPAL infection yesterday while in the ER, however now, patient reports no headache, and neck stiffness, photophobia. . REVIEW OF SYSTEMS 10 systems were reviewed and negative with the exception of the elements mentioned in the history of present illness. PMHx: History of pancreatic cancer, status post Whipple operation, primary local oncologist is Dr. Dukes, patient is also followed [facility] Hx: Here with his PHYSICAL General Appearance: Alert, no distress Eyes: Pupils equal and round no pallor or injection ENT, Mouth: Mucous membranes moist Respiratory: There are no retractions, lungs are clear to auscultation Cardiovascular: Regular rate and rhythm Gastrointestinal: Abdomen is soft and non-tender, no masses, bowel sounds normal Neurological: A&O, moves all extremities Skin: Warm and dry, no rashes Musculoskeletal: Neck is supple non tender Extremities: symmetrical, full range of motion Psychiatric: Patient is oriented X 3, there is no agitation Source: Patient, Family, Old records Exam Limitations: No limitations - Personal History Current Tetanus/Diphtheria Vaccine: Yes Current Tetanus Diphtheria and Acellular Pertussis (TDAP): Yes - Medical/Surgical History Hx Asthma: No Hx Chronic Respiratory Disease: No Hx Diabetes: No Hx Cardiac Disease: No Hx Renal Disease: No Hx Cirrhosis: No Hx Alcoholism: No Hx HIV/AIDS: No Hx Splenectomy or Spleen Trauma: No Other PMH: pancreatic cancer jan 05 2017 - Social History Smoking Status: Never smoked Constitutional: Initial Vital Signs Temperature (C) 38.7 C H 05/08/18 05:40 Heart Rate 84 05/08/18 05:40 Respiratory Rate 18 05/08/18 05:40 Blood Pressure 105/64 05/08/18 05:40 O2 Sat (%) 93 05/08/18 05:40 O2 Delivery Mode Room Air Allergies/Adverse Reactions: azithromycin [From Zithromax] Allergy (Mild, Verified 05/07/18 16:19) Rash Gadolinium-Containing Contrast Medi Allergy (Mild, Verified 05/07/18 16:19) Vomiting Home Medications: Medication Instructions Recorded Creon 12 (*) 05/07/18 Medical Decision Making Differential Diagnosis: 58-year-old man, history of pancreatic cancer status post Whipple and chemotherapy which finished in December of this year who presents to the ER for 2 days of fever and chills. He was seen yesterday and had a thorough evaluation and was discharged home after his symptoms improved. He was feeling well when he returned home, however developed what sounds like rigors at about 4:00 a.m. This morning with an associated fever to about 104 F. In the emergency department, patient given IV fluids. Labs checked and relatively unchanged from yesterday with slight increase in unconjugated bili [place] from 3 to 4. I consulted with the hospitalist Dr. Turner and we will admit the patient for fever. We will give broad-spectrum antibiotics. The patient had blood cultures performed about 12 hr ago, thus we will not repeat. Given the rigors I am concerned for bacteremia though source is quite unclear at this point. I also consulted with Dr. Judge on-call for the patient's primary oncologist Dr. Dukes. She agrees with our current evaluation and plan for admission with broad-spectrum antibiotics. - Data Points Laboratory Results: Laboratory Results 05/08/18 05:45 05/08/18 05:45 05/08/18 05/08/18 05/08/18 06:10 05:45 05:45 WBC RBC Hgb Hct MCV MCH MCHC RDW Plt Count MPV Neut % (Auto) Lymph % (Auto) [place] % (Auto) Eos % (Auto) Baso % (Auto) Nucleat RBC Rel Count Absolute Neuts (auto) Absolute Lymphs (auto) Absolute Monos (auto) Absolute Eos (auto) Absolute Basos (auto) Absolute Nucleated RBC Immature Gran % Immature Gran # RBC/WBC/PLT Morphology Platelet Estimate Haptoglobin Pending VBG Lactic Acid 0.8 mmol/L mmol/L (0.7-2.1) Sodium Potassium Chloride Carbon Dioxide Anion Gap BUN Creatinine Estimated GFR Glucose Calcium Total Bilirubin Conjugated Bilirubin Unconjugated Bilirubin AST ALT Alkaline Phosphatase Lactate Dehydrogenase 478 IU/L IU/L (313-618) Total Protein Albumin 18 12 05:45 05:45 WBC 8.68 10^3/uL 10^3/uL (3.80-9.50) RBC 4.50 10^6/uL 10^6/uL (4.40-6.38) Hgb 13.6 g/dL L g/dL (13.7-17.5) Hct 39.7 % L % (40.0-51.0) MCV 88.2 fL fL (81.5-99.8) MCH 30.2 pg pg (27.9-34.1) MCHC 34.3 g/dL g/dL (32.4-36.7) RDW 13.2 % % (11.5-15.2) Plt Count 165 10^3/uL 10^3/uL (150-400) MPV 11.1 fL fL (8.7-11.7) Neut % (Auto) 87.2 % H % (39.3-74.2) Lymph % (Auto) 5.0 % L % (15.0-45.0) [place] % (Auto) 6.7 % % (4.5-13.0) Eos % (Auto) 0.1 % L % (0.6-7.6) Baso % (Auto) 0.5 % % (0.3-1.7) Nucleat RBC Rel Count 0.0 % % (0.0-0.2) Absolute Neuts (auto) 7.57 10^3/uL H 10^3/uL (1.70-6.50) Absolute Lymphs (auto) 0.43 10^3/uL L 10^3/uL (1.00-3.00) Absolute Monos (auto) 0.58 10^3/uL 10^3/uL (0.30-0.80) Absolute Eos (auto) 0.01 10^3/uL L 10^3/uL (0.03-0.40) Absolute Basos (auto) 0.04 10^3/uL 10^3/uL (0.02-0.10) Absolute Nucleated RBC 0.00 10^3/uL 10^3/uL (0-0.01) Immature Gran % 0.5 % % (0.0-1.1) Immature Gran # 0.04 10^3/uL 10^3/uL (0.00-0.10) RBC/WBC/PLT Morphology TNP Platelet Estimate TNP Haptoglobin VBG Lactic Acid Sodium 139 mEq/L mEq/L (135-145) Potassium 3.4 mEq/L mEq/L (3.3-5.0) Chloride 108 mEq/L mEq/L (97-110) Carbon Dioxide 23 mEq/l mEq/l (22-31) Anion Gap 8 mEq/L mEq/L (6-14) BUN 12 mg/dL mg/dL (7-23) Creatinine 0.9 mg/dL mg/dL (0.7-1.3) Estimated GFR > 60 Glucose 117 mg/dL H mg/dL (70-100) Calcium 8.7 mg/dL mg/dL (8.5-10.4) Total Bilirubin 4.3 mg/dL H mg/dL (0.1-1.4) Conjugated Bilirubin 0.2 mg/dL mg/dL (0.0-0.5) Unconjugated Bilirubin 4.1 mg/dL H mg/dL (0.0-1.1) AST 49 IU/L IU/L (17-59) ALT 71 IU/L IU/L (21-72) Alkaline Phosphatase 108 IU/L IU/L (38-126) Lactate Dehydrogenase Total Protein 5.8 g/dL L g/dL (6.3-8.2) Albumin 3.3 g/dL L g/dL (3.5-5.0) Medications Given: Discontinued Medications Sodium Chloride (Ns) 1,900 mls @ 3,800 mls/hr 30 ml/kg infuse over 30 min ( 1900 ml) IV EDNOW ONE PRN Reason: Protocol Stop: 05/08/18 06:13 Last Admin: 05/08/18 05:59 Dose: 1,900 mls Departure - Departure Disposition: [facility] Inpatient Acute Clinical Impression: Pancreatic adenocarcinoma Fever Qualifiers: Fever type: unspecified Qualified Code(s): R50.9 - Fever, unspecified Condition: Fair Referrals: Alpesh Ordaz [Primary Care Provider] - As per Instructions
--- NOTE | 2018-05-08 07:35 | PDGENHP ---
History and Physical - Chief Complaint Fever - History of Present Illness 58 yo M w/ hx of pancreatic CA s/p Whipple procedure and chemotherapy presents with fever and rigors. The patient has had fever and rigors for 2 days. He presented to the ED yesterday evening and was sent home after a reassuring work- up including CXR, CT abdomen, UA, and flu without clear etiology. He woke up this morning and had an episode of rigors that lasted about 40 minutes. His T was measured at 103 so they came back in for repeat evaluation. Laboratory evaluation this morning notable mostly for elevated unconjugated bilirubin. HisT was measured at 38.7 while here. Case discussed with ED physician Dr. Quinonez; records reviewed and summarized above. History Information - Allergies/Home Medication List Allergies/Adverse Reactions: azithromycin [From Zithromax] Allergy (Mild, Verified 05/07/18 16:19) Rash Gadolinium-Containing Contrast Medi Allergy (Mild, Verified 05/07/18 16:19) Vomiting Home Medications: Creon 12 (*) 05/07/18 [Last Taken Unknown] I have personally reviewed and updated: family history, medical history - Past Medical History cancer - Surgical History Additional surgical history: Whipple - Family History Positive for: cancer - Social History Smoking Status: Never smoked Review of Systems Review of Systems: ROS: 10pt was reviewed & negative except for what was stated in HPI & below Physical Exam Physical Exam: Temp Pulse Resp BP Pulse Ox 38.7 C H 84 18 105/64 93 05/08/18 05:40 05/08/18 05:40 05/08/18 05:40 05/08/18 05:40 05/08/18 05:40 Constitutional: no apparent distress, not in pain Eyes: PERRL, EOMI Ears, Nose, Mouth, Throat: moist mucous membranes, no oral mucosal ulcers Cardiovascular: regular rate and rhythym, no murmur, rub, or gallop Respiratory: no respiratory distress, clear to auscultation Gastrointestinal: normoactive bowel sounds, soft, non-tender abdomen Skin: warm, other (RU chest post without signs of infection) Musculoskeletal: full muscle strength, no muscle tenderness Neurologic: AAOx3, CN II-XII Intact Psychiatric: interacting appropriately, not anxious Lab Data & Imaging Review 05/08/18 05:45 05/08/18 05:45 WBC 8.68 10^3/uL (3.80-9.50) 05/08/18 05:45 RBC 4.50 10^6/uL (4.40-6.38) 05/08/18 05:45 Hgb 13.6 g/dL (13.7-17.5) L 05/08/18 05:45 Hct 39.7 % (40.0-51.0) L 05/08/18 05:45 MCV 88.2 fL (81.5-99.8) 05/08/18 05:45 MCH 30.2 pg (27.9-34.1) 05/08/18 05:45 MCHC 34.3 g/dL (32.4-36.7) 05/08/18 05:45 RDW 13.2 % (11.5-15.2) 05/08/18 05:45 Plt Count 165 10^3/uL (150-400) 05/08/18 05:45 MPV 11.1 fL (8.7-11.7) 05/08/18 05:45 Neut % (Auto) 87.2 % (39.3-74.2) H 05/08/18 05:45 Lymph % (Auto) 5.0 % (15.0-45.0) L 05/08/18 05:45 [place] % (Auto) 6.7 % (4.5-13.0) 05/08/18 05:45 Eos % (Auto) 0.1 % (0.6-7.6) L 05/08/18 05:45 Baso % (Auto) 0.5 % (0.3-1.7) 05/08/18 05:45 Nucleat RBC Rel Count 0.0 % (0.0-0.2) 05/08/18 05:45 Absolute Neuts (auto) 7.57 10^3/uL (1.70-6.50) H 05/08/18 05:45 Absolute Lymphs (auto) 0.43 10^3/uL (1.00-3.00) L 05/08/18 05:45 Absolute Monos (auto) 0.58 10^3/uL (0.30-0.80) 05/08/18 05:45 Absolute Eos (auto) 0.01 10^3/uL (0.03-0.40) L 05/08/18 05:45 Absolute Basos (auto) 0.04 10^3/uL (0.02-0.10) 05/08/18 05:45 Absolute Nucleated RBC 0.00 10^3/uL (0-0.01) 05/08/18 05:45 Immature Gran % 0.5 % (0.0-1.1) 05/08/18 05:45 Immature Gran # 0.04 10^3/uL (0.00-0.10) 05/08/18 05:45 RBC/WBC/PLT Morphology TNP 05/08/18 05:45 Platelet Estimate TNP 05/08/18 05:45 VBG Lactic Acid 0.8 mmol/L (0.7-2.1) 05/08/18 06:10 Sodium 139 mEq/L (135-145) 05/08/18 05:45 Potassium 3.4 mEq/L (3.3-5.0) 05/08/18 05:45 Chloride 108 mEq/L (97-110) 05/08/18 05:45 Carbon Dioxide 23 mEq/l (22-31) 05/08/18 05:45 Anion Gap 8 mEq/L (6-14) 05/08/18 05:45 BUN 12 mg/dL (7-23) 05/08/18 05:45 Creatinine 0.9 mg/dL (0.7-1.3) 05/08/18 05:45 Estimated GFR > 60 05/08/18 05:45 Glucose 117 mg/dL (70-100) H 05/08/18 05:45 Calcium 8.7 mg/dL (8.5-10.4) 05/08/18 05:45 Total Bilirubin 4.3 mg/dL (0.1-1.4) H 05/08/18 05:45 Conjugated Bilirubin 0.2 mg/dL (0.0-0.5) 05/08/18 05:45 Unconjugated Bilirubin 4.1 mg/dL (0.0-1.1) H 05/08/18 05:45 AST 49 IU/L (17-59) 05/08/18 05:45 ALT 71 IU/L (21-72) 05/08/18 05:45 Alkaline Phosphatase 108 IU/L (38-126) 05/08/18 05:45 Lactate Dehydrogenase 478 IU/L (313-618) 05/08/18 05:45 Total Protein 5.8 g/dL (6.3-8.2) L 05/08/18 05:45 Albumin 3.3 g/dL (3.5-5.0) L 05/08/18 05:45 Assessment & Plan Assessment: 58 yo M w/ hx of pancreatic CA presents with fever. Plan: 1. Fever - With prolonged period of rigors; unclear etiology as patient denies localizing symptoms. He has hx of pancreatic CA s/p Whipple and a chest port in place. The chest port does not appear infected. Laboratory work-up notable mostly for rising, unconjugated bilirubin. CXR, UA, CT abdomen, and flu without clear etiology for fever. Chest port does not appear infected. - Admit for observation - Will give a dose of meropenem to cover possibility of biliary source - Blood cultures pending from lat night, NGTD - Will check procalcitonin, respiratory PCR - Oncology (Dr. Judge) consulted for further evaluation 2. Elevated bilirubin - 3.0->4.1 since last night, predominantly unconjugated. He does have a small PVT noted on scan, but this seems unlikely to be causative. The concern is this may be related to infection. - Meropenem as above - Will check LDH, haptoglobin to screen for hemolysis 3. 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 This is new compared to our last imaging but it would be helpful to see if there are interim scans for comparison. - Hem/Onc consulted, would discuss with them if this needs to be treated 4. Hx pancreatic CA - S/p Whipple procedure and chemotherapy. He has a chest port in his R upper chest. Diet - Regular Code - Full Ppx - LMWH Dispo - Admit under observation status
[2018-05-08] MEDS: ENOXAPARIN 40 MG/0.4 ML SYR SC SCH ×2 (09:58→11:54)
--- NOTE | 2018-05-08 13:47 | HOSPPROG ---
Hospitalist Progress Note Assessment/Plan: 58 yo M w/ hx of pancreatic CA presents with fever. Plan: 1. Fever - With prolonged period of rigors; unclear etiology as patient denies localizing symptoms. He has hx of pancreatic CA s/p Whipple and a chest port in place. The chest port does not appear infected. Laboratory work-up notable mostly for rising, unconjugated bilirubin. CXR, UA, CT abdomen, and flu without clear etiology for fever. Chest port does not appear infected. - S/p meropenem, will continue for now - Blood cultures pending from lat night, NGTD - Will check procalcitonin, respiratory PCR - Oncology (Dr. Judge) consulted for further evaluation 2. Elevated bilirubin - 3.0->4.1 since last night, predominantly unconjugated. He does have a small PVT noted on scan, but this seems unlikely to be causative. The concern is this may be related to infection. - Meropenem as above - Will check LDH, haptoglobin to screen for hemolysis 3. 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 After discussion with , this was present on imaging in Feb 2018, will defer to oncology for AC 4. Hx pancreatic CA - S/p Whipple procedure and chemotherapy. He has a chest port in his R upper chest. Diet - Regular Code - Full Ppx - LMWH Dispo - Pending clinical course Subjective: Patient reports feeling improved this morning Objective: Vital Signs Temp Pulse Resp BP Pulse Ox 36.4 C 51 L 20 109/67 90 L 05/08/18 11:54 05/08/18 11:54 05/08/18 11:54 05/08/18 11:54 05/08/18 11:54 05/07/18 05/08/18 05/09/18 05:59 05:59 05:59 Intake Total 1999 Balance 1999 - Physical Exam Constitutional: no apparent distress Eyes: PERRL Ears, Nose, Mouth, Throat: moist mucous membranes Cardiovascular: regular rate and rhythym Respiratory: no respiratory distress Gastrointestinal: soft, non-tender abdomen Genitourinary: no bladder fullness Skin: warm, other (Chest port L side with no warmth, erythema ) Musculoskeletal: full muscle strength Neurologic: AAOx3 Psychiatric: interacting appropriately ICD10 Worksheet Patient Problems: Problems Problem Status Onset Fever Acute Pancreatic adenocarcinoma Acute Cholangitis Acute
[2018-05-08] MEDS: MEROPENEM 1 GM in NS 100 ML IV SCH ×2 (14:35→21:54)
[2018-05-08] MEDS ORDERED: BUPIVACAINE/EPI 0.5% 30 ML SDV ONE (16:56)
[2018-05-08] MEDS ORDERED: LIDO/EPI 1% **for epidural** 30 ML SDV ONE (17:18)
--- NOTE | 2018-05-08 17:55 | POSTOPPROG ---
Post Op Note Date of Operation: 05/08/18 Surgeon: Kalen Campbell Pre-op Diagnosis: pancreatic cancer, bacteremia Post-op Diagnosis: same Indication: same Procedure: right ij por removal Inf/Abcess present in the surg proc area at time of surgery?: No EBL: Minimal
--- NOTE | 2018-05-08 18:07 | GCON ---
ONCOLOGY CONSULTATION REASON FOR CONSULTATION: Fever with history of stage III adenocarcinoma of the pancreas. HISTORY OF PRESENT ILLNESS: The patient is a 58-year-old male with a history of stage III adenocarcinoma of the pancreas who is admitted for fever with blood cultures from yesterday growing Klebsiella. The patient's oncology history dates back to December of 2016 when he presented with jaundice. He was found to have a tumor in the head of the pancreas. He underwent an endoscopic ultrasound with biopsy consistent with adenocarcinoma. On EUS, there were no abnormal lymph nodes. He was staged as a T3 N0. The initial mass measured 4.4 x 4.4 cm and encased the SMV and portal confluence with attenuation of the main portal vein. The splenic vein, main portal vein and intrahepatic portal venous branches were all patent. He had no evidence of metastatic disease. Initially , he had a stent placed via ERCP. The mass was felt to be unresectable at presentation. The patient was seen in consultation at [facility]. He underwent neoadjuvant chemotherapy with 6 cycles of FOLFIRINOX, which he completed in April of 2017. He underwent a Whipple on July 21, 2017 with pathology showing no evidence of residual adenocarcinoma. There were acellular mucin pools involving the pancreas. There was patchy fibrosis and chronic inflammation. He was felt to have had a complete response to the neoadjuvant therapy. Two gastric duodenal lymph nodes were sampled and were negative. Portacaval node was negative. Margins were negative. He then received adjuvant chemotherapy with capecitabine starting an September and completed that in December. The patient has been free of disease since. The patient's called on Wednesday with fever. His temperature was up to 102. He was referred to the emergency room. An abdominal CT was negative for any evidence of metastatic recurrence. There was a small segmental portal vein thrombosis in the right lobe of the liver, new since June 2017, but reportedly unchanged from CT scans done at other outside institutions. He was dior cultured. A chest x-ray was unremarkable. Laboratory revealed a white count of 10.1, hematocrit of 43 and normal platelet count. Chemistries were unremarkable other than a total bilirubin of 3.0. This was predominantly unconjugated and he has had this identified in the past. Because there was no clear source identified, the patient was discharged. He developed another fever this morning to 103 with rigors. He presented again to the emergency room and at that time was admitted. Abdominal ultrasound was performed which showed hepatic steatosis with a patent portal venous system and a focally dilated biliary radical versus tiny peripheral portal vein thrombus in the right lobe. During this time, blood cultures from the emergency room visit last evening were growing gram-negative rods consistent with Klebsiella pneumoniae. Of note, the patient had a screening colonoscopy on April 24. A small polyp was removed at the appendiceal orifice, but otherwise unremarkable. He also had an episode of Klebsiella pneumoniae bacteremia in May of 2017, felt to be related to the biliary stent. Also of note, the patient still has his port in place. The patient is currently in the operating room with Dr. Antoine, having the port removed in light of the bacteremia. I have discussed and reviewed the situation with his . PAST MEDICAL HISTORY: Unremarkable. PAST SURGICAL HISTORY: Unremarkable other than Whipple. FAMILY HISTORY: His mother of cholangiocarcinoma. Maternal uncle had colon cancer. Maternal grandfather had some type of bone cancer. SOCIAL HISTORY: He works in the [employer] industry. He is to his . They do not have any children. REVIEW OF SYSTEMS: Unable to be obtained as the patient is currently in the OR. PHYSICAL EXAM: VITAL SIGNS: Blood pressure earlier 108/74, heart rate 62, O2 saturation 97% on room air. He is afebrile. Physical exam deferred as patient is currently in the OR. I met with his . LABORATORY DATA: White blood cell count 8.68, hematocrit 39.7, platelets 165. Metabolic panel unremarkable other than total bilirubin of 4.3 with unconjugated bilirubin of 4.1, and conjugated bilirubin of 0.2. LDH is normal. IMPRESSION: This is a 58-year-old male initially diagnosed with a T3 N0 adenocarcinoma of the pancreas in January 2017. He was initially felt to be unresectable and then underwent neoadjuvant chemotherapy with FOLFIRINOX with complete pathologic response at the time of a Whipple surgery in July. He then received 3 months of adjuvant chemotherapy with capecitabine and has been free of disease since. He now presents with fevers and rigors with blood cultures demonstrating Klebsiella. The port is being removed. The Klebsiella suggests a GI source. Unlikely that this has evolved from the colonoscopy from April 24, but that would be a consideration. Biliary source is also a question. Likely an MRI of the pancreatic bed may be helpful to further delineate whether or not there may be any anatomic abnormalities that we are not seeing on present imaging. We will continue to follow along with you. /[id number]/MODL MTDD
[2018-05-08] MEDS: LIPASE 24,000/AMYLASE/PROTEASE (CREON) 1 CAP PO PRN (18:18)
[2018-05-08] MEDS: LIPASE 24,000/AMYLASE/PROTEASE (CREON) 1 CAP PO SCH (18:18)
--- NOTE | 2018-05-08 19:51 | PDMN ---
Medical Necessity Medical necessity: MCG: M160 fever, rising Bili, PMHx pancreatic Ca. stage III , S/P whipple, chemo, and chest port OP: IJ port removal due to bacteremia, anticipate > 2 MN further monitoring, eval and tx.
--- NOTE | 2018-05-08 19:58 | GOP ---
DATE OF OPERATION: SURGEON: Kalen Campbell MD PREOPERATIVE DIAGNOSIS: Bacteremia, pancreatic cancer. POSTOPERATIVE DIAGNOSIS: Bacteremia, pancreatic cancer. PROCEDURE PERFORMED: Right internal jugular port removal. FINDINGS: INDICATIONS: A 58-year-old male with a chemotherapy port on the right anterior chest wall, which emmanuel kaylee into the internal jugular vein. He has E coli in his blood and the medical service has asked th e port be removed. DESCRIPTION OF PROCEDURE: Patient positioned supine. The area was scrubbed with ChloraPrep, draped in the usual sterile fashion. 1% lidocaine with epinephrine was infiltrated over the port and then t he original incision opened. Dissection delivered the port out of its capsule and it was easily with drawn from the internal jugular vein. The tip was sent for culture. The wound was closed with layer s and Dermabond on the skin. The patient tolerated the procedure well. /[id number]/MODL
[2018-05-08] MEDS: ACETAMINOPHEN 325 MG TAB PO PRN (21:53)
[2018-05-09] MEDS: MEROPENEM 1 GM in NS 100 ML IV SCH (05:02)
[2018-05-09 05:17] LABS: PLATELET COUNT 116 10^3/uL (150-400)
[2018-05-09] MEDS ORDERED: IBUPROFEN 200 MG TAB PO PRN (07:57)
[2018-05-09] MEDS: ENOXAPARIN 40 MG/0.4 ML SYR SC SCH (08:05)
[2018-05-09] MEDS: LIPASE 24,000/AMYLASE/PROTEASE (CREON) 1 CAP PO SCH ×3 (08:05→19:39)
--- NOTE | 2018-05-09 12:30 | ASMTCMCOM ---
CM Note CM Note Notes: Patient admitted via ed with c/o rigors and fever. He is s/p whipple procedure last July. He normally lives independently with his . Port surgically removed. CM to follow for needs. Plan: Likely to discharge to home independently when medically cleared for discharge. Date Signed: 05/09/2018 12:29 PM Electronically Signed By:Natalie Rock RN
--- NOTE | 2018-05-09 12:44 | HOSPPROG ---
Hospitalist Progress Note Assessment/Plan: 58 yo M w/ hx of pancreatic CA presents with fever. Plan: 1. Klebsiella Bacteremia - Fever on admission - He has hx of pancreatic CA s/p Whipple and a chest port in place. Laboratory work-up notable mostly for rising, unconjugated bilirubin. CXR, UA, CT abdomen, and flu without clear etiology for fever. - Blood cultures from 05/07 grew 06/10 Klebsiella Pneumoniae, will repeat blood cultures today - Will switch to Ertapenum from Meropenum per ID recommendations, discussed with Dr. Pollo Amato today - Source remains unclear, had chest port which did not appear infected, discussed with oncology and consulted surgery on 05/08 for removal - Will order MRCP to evaluate for biliary source given hx of Klebiella bacteremia in setting of acute cholangitis last year 2. Elevated bilirubin - predominantly unconjugated. He does have a small PVT noted on scan, but this has been present since 02/2018 according to outside hospital imaging. - Abx as above - MRCP ordered to further evaluate 3. 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 After discussion with , this was present on imaging in Feb 2018, will defer to oncology for AC 4. Hx pancreatic CA - S/p Whipple procedure and chemotherapy. Diet - Regular Code - Full Ppx - LMWH Dispo - Pending clinical course Subjective: Patient reports feeling improved this AM Objective: Vital Signs Temp Pulse Resp BP Pulse Ox 36.9 C 63 18 121/77 H 94 05/09/18 10:49 05/09/18 07:37 05/09/18 07:37 05/09/18 07:37 05/09/18 07:37 Microbiology 05/08/18 17:45 Gram Stain - Final Other - Other Anaerobic Culture - Final Laboratory Results 05/09/18 04:56 05/09/18 04:56 05/08/18 05/09/18 05/10/18 05:59 05:59 05:59 Intake Total 2240 120 Balance 2240 120 - Physical Exam Constitutional: no apparent distress Eyes: PERRL Ears, Nose, Mouth, Throat: moist mucous membranes Cardiovascular: regular rate and rhythym Respiratory: no respiratory distress Gastrointestinal: soft, non-tender abdomen Genitourinary: no bladder tenderness Skin: warm Musculoskeletal: full muscle strength Neurologic: AAOx3 Psychiatric: interacting appropriately ICD10 Worksheet Patient Problems: Problems Problem Status Onset Fever Acute Pancreatic adenocarcinoma Acute Cholangitis Acute
[2018-05-09] MEDS: ERTAPENEM 1 GM in NS 100 ML IV SCH (13:33)
--- NOTE | 2018-05-09 16:49 | GCON ---
INFECTIOUS DISEASE CONSULTATION DATE OF CONSULTATION: 05/09/2018 REFERRING PHYSICIAN: [place] DO REASON FOR CONSULTATION: Klebsiella bacteremia. HISTORY OF PRESENT ILLNESS: Patient is a 58-year-old male with a past medical history of pancreatic cancer, status post Whipple procedure, with previous history of Klebsiella pneumoniae bacteremia in 2016 who I am asked to see in consultation for Klebsiella bacteremia. The patient describ es having fever and rigors for approximately 2 days prior to admission. This was associated with mil d headache and approximately 2 weeks of fatigue. He did not have nausea, vomiting, or abdominal pain . He did not have any dysuria, urgency, or frequency. The patient was seen in the emergency departm ent on 05/07/2018, at which point in time he was noted to have mild leukocytosis and negative influen za PCR testing. Blood cultures were obtained at the time of that visit. Subsequently, he was treate d conservatively and discharged home; however, he continued to have persistent fever and rigors promp ting re-evaluation in the emergency department and subsequent readmission. As part of his initial evaluation, abdominal CT scan and ultrasound were both performed, which did no t show overt evidence of biliary obstruction. Question possibility of segmental biliary dilatation v ersus small portal vein thrombus. Patient's blood cultures, which were obtained at his initial emerg ency department visit subsequently have shown 1 of 2 sets with Klebsiella pneumoniae. He has been re ceiving meropenem since the time of admission. He notes he feels significantly improved today withou t ongoing fever or rigors. He previously has had a biliary stent, which was removed in July. He also has an indwelling port which he has been flushing every few weeks. He has not had pain or swel ling in the port area. Given the recurrent nature of his bacteremia, his port was removed upon this admission. Given the above findings, I am now asked to assist in his ongoing management. PAST MEDICAL HISTORY: Pancreatic cancer, Klebsiella bacteremia as outlined above, colonoscopy perfor med in April where a polyp was removed. PAST SURGICAL HISTORY: Whipple procedure, rotator cuff surgery, port placement. CURRENT MEDICATIONS: Meropenem 1 g IV q.8 h., Creon 1 capsule daily as needed with snacks and t.i.d. with meals, Lovenox 40 mg subcu daily, Motrin as needed. ALLERGIES: Gadolinium associated with nausea when administered the [employer]; current subsequently has tolerated gadolinium without difficulty. SOCIAL HISTORY: Patient does not smoke and rarely drinks alcohol. No drug use. Travel to [place] in February. FAMILY HISTORY: Coronary artery disease, multiple cancers, including pancreatic cancer in a cousin. REVIEW OF SYSTEMS: Outside that noted in the HPI, the remainder of 10-system review is unremarkable. PHYSICAL EXAMINATION: VITAL SIGNS: Temperature 36.6, heart rate 61, respiratory rate 16, blood pres sure 111/74, oxygen saturation 96% on room air. GENERAL: Patient is well nourished, well developed, in no acute distress. He appears nontoxic. HEENT: There is no scleral icterus, conjunctival injec tion, or conjunctival petechiae. Oropharynx shows moist mucous membranes with no thrush. Dentition is in good repair. There is no nasal discharge or sinus tenderness. NECK: Supple without palpable lymphadenopathy or thyromegaly. CHEST: Clear to auscultation bilaterally without adventitious sound s. Respiratory effort is normal. Prior port site without erythema or tenderness or drainage. CARDIO VASCULAR: Regular rate and rhythm without murmurs, gallops, or rubs. ABDOMEN: Soft, nontender, non distended. There is no palpable organomegaly. Bowel sounds are present. MUSCULOSKELETAL: No cyanosis, clubbing, or edema. SKIN: No rashes present. No stigmata of endocar ditis. Skin is warm and dry to touch. LYMPHATICS: No cervical or supraclavicular nodes. NEUROLOGI C: Patient is alert and interacts appropriately with examiner. Cranial nerves 2-[address] Sensation is grossly intact. Muscle tone and bulk are normal. LABORATORY/IMAGING: White blood cell count 4.8, hematocrit 37.6, platelets 116, neutrophils 63%, lym phocytes 21%, monocytes 14%. Serum creatinine is 0.8. AST 52, ALT 73, bilirubin 3.1 (unconjugated 3 .0), alkaline phosphatase 85, albumin 2.7, lipase less than 10. Urinalysis shows 1-3 red blood cells and 1-3 white blood cells. Influenza PCR is negative. Blood cultures from 05/07/2018, show 1 of 2 sets with Klebsiella pneumoniae. Blood cultures from 05/09/2018, are pending. CT scan and abdominal ultrasound as outlined above. IMPRESSION: Klebsiella pneumoniae bacteremia: The patient has 1 previous episode of Klebsiella bact eremia approximately 1 year ago. Suspect most likely etiology for the patient's bacteremia is relate d to cholangitis despite no evidence of obstructive biliary disease. Port as etiology is a considera tion, although I do not suspect Klebsiella would be present on a port from initial bacteremia over 12 month period of time. Port has now been removed so this will not be a factor moving forward. Will change meropenem to ertapenem as susceptibility of Klebsiella in our hospital is 100% for both antibi otics with ertapenem being slightly narrower. If isolate is fluoroquinolone susceptible, anticipate completing therapy with oral fluoroquinolone given its excellent bioavailability. Think patient woul d benefit from an MRCP to ensure no evidence of biliary abnormality, although based on CT and ultraso und, this seems unlikely; may have some element of biliary reflux as potential risk factor for recurr ent cholangitis. RECOMMENDATIONS: 1. Ertapenem 1 g IV daily. 2. Discontinue meropenem. 3. Consider MRCP to further evaluate biliary system. 4. Follow up repeat blood cultures as available. 5. Await susceptibility on Klebsiella pneumoniae isolate. Thank you for this consultation. We will continue to follow the patient with you. /[id number]/MODL
[2018-05-09] MEDS: ACETAMINOPHEN 325 MG TAB PO PRN (19:30)
[2018-05-09] MEDS: LIPASE 24,000/AMYLASE/PROTEASE (CREON) 1 CAP PO PRN (19:31)
--- NOTE | 2018-05-09 19:43 | SOAPPROG ---
SOAP Progress Note Assessment/Plan: Assessment/Plan: 58 year old male with T3N0 locally advanced pancreatic cancer status post neoadjuvant FOLFIRINOX and Whipple with R0 resection followed by adjuvant Xeloda admitted for gram negative bacteremia. #Klebsiella Bacteremia Had similar presentation in the past in setting of biliary obstruction. CTAP without particular pathology. He is on appropriate antimicrobials and has defervesced. PORT was removed. -Agree with ID consultation in particular to discuss best way to assess for source #Pancreatic Cancer status post Whipple with R0 resection No evidence of recurrent disease 05/09/18 19:40 05/09/18 19:46 Subjective: patient had port removed yesterday with some rigors 2 hours after removal. No new symptoms. No pain. No skin lesions Objective: Vital Signs Temp Pulse Resp BP Pulse Ox 38.6 C H 73 14 115/76 91 L 05/09/18 19:27 05/09/18 19:27 05/09/18 19:27 05/09/18 19:27 05/09/18 19:27 Microbiology 05/08/18 17:45 Gram Stain - Final Other - Other Anaerobic Culture - Final Laboratory Results 05/09/18 04:56 05/09/18 04:56 05/08/18 05/09/18 05/10/18 05:59 05:59 05:59 Intake Total 2240 370 Balance 2240 370 General: non toxic appearing HEENT: PERRL, mild icterus no pallor, oral mucosa moist no lesions Neck: supple, no adenopathy CV: RRR without rubs thrills and gallops Chest: CTA in bilateral posterior lungs Abdomen: soft, nontender, non distended without HSM Extremities; warm and well perfused, no edema ICD10 Worksheet Patient Problems: Problems Problem Status Onset Fever Acute Pancreatic adenocarcinoma Acute Cholangitis Acute
[2018-05-10 05:37] LABS: PLATELET COUNT 142 10^3/uL (150-400)
[2018-05-10] MEDS: LIPASE 24,000/AMYLASE/PROTEASE (CREON) 1 CAP PO SCH ×2 (08:20→12:08)
--- NOTE | 2018-05-10 09:43 | PCMIDPN ---
Assessment/Plan: Assessment/Plan: * Klebsiella pneumoniae bacteremia: Suspect most likely etiology is biliary system despite lack of significant ductal dilatation. MRI with question of focal area of cholangitis and small portal vein clot. Isolate is susceptible to fluoroquinolones. Will transition patient to oral levofloxacin 750 mg once daily to complete 14 days of therapy in total. Side effects of fluoroquinolone use including tendinopathy, allergic reactions, skin rash, C difficile colitis, potential drug interactions, and need to avoid concomitant intake of polyvalent cations discussed with patient. Will continue to follow up blood cultures which were repeated on 05/09/2018 to ensure remain no growth. Will arrange for follow-up with me next week to discuss strategies in the future if he develops recurrent fever and rigors. He does not favor suppressive antibiotic therapy which is reasonable given bacteremia by approximately 12 months in time. Clinical findings and plan reviewed with patient, , Dr. Ray and Dr. Osborne. 05/10/18 09:40 05/10/18 09:44 Subjective: Patient with fever last p.m.. Otherwise feels significantly improved clinically. Tolerating oral intake well. No abdominal pain. No pain at prior port site. Objective: Vital Signs Temp Pulse Resp BP Pulse Ox 36.9 C 60 16 111/75 93 05/10/18 08:13 05/10/18 08:13 05/10/18 08:13 05/10/18 08:13 05/10/18 08:13 Laboratory Results 05/10/18 04:50 05/10/18 04:50 05/09/18 05/10/18 05/11/18 05:59 05:59 05:59 Intake Total 2240 520 Balance 2240 520 Ertapenem # 2, antibiotics # 3 MRI of abdomen patchy signal abnormality with question of small portal vein clot versus focal cholangitis, no obstructive features noted - Physical Exam General Appearance: alert, no apparent distress EENT: No scleral icterus, No thrush, No conjunctival petechiae Respiratory: lungs clear, other (Port site without erythema or tenderness), No respiratory distress Cardiac/Chest: regular rate, rhythm Abdomen: non-tender, No distended - Time Spent With Patient Time Spent with Patient: greater than 35 minutes Time Spent with Patient: Greater than 35 minutes spent on this patients care, greater than 50% of time spent counseling, educating, and coordinating care regarding the above mentioned plan. ICD10 Worksheet Patient Problems: Problems Problem Status Onset Fever Acute Pancreatic adenocarcinoma Acute Cholangitis Acute
[2018-05-10] MEDS: ENOXAPARIN 40 MG/0.4 ML SYR SC SCH (10:38)
[2018-05-10 11:59] VITALS: BP 112/78
[2018-05-10] MEDS: ERTAPENEM 1 GM in NS 100 ML IV SCH (12:08)
--- NOTE | 2018-05-10 14:11 | ASMTLACE ---
LACE Length of stay for Answers: 2 days current admission Acuity / Level of Answers: Yes Care: Did the patient have an inpatient admission? Comorbidities - select Answers: Any tumor (including all that apply lymphoma or leukemia) Opioid dependence / Chronic pain # of Emergency department Answers: 1-2 visits in the last 6 months Score: 12 Date Signed: 05/10/2018 02:11 PM Electronically Signed By:Natalie Rock RN
--- NOTE | 2018-05-10 14:21 | ASMTDCNOTE ---
Case Management Discharge Discharge Order Complete? Answers: Yes Patient to Obtain Answers: via Family Medications Transportation Arranged Answers: Family/Friends Family Notified Answers: Yes Discharge Comments Notes: Patient medically cleared to discharge to home. No needs. Date Signed: 05/10/2018 02:20 PM Electronically Signed By:Natalie Rock RN
--- NOTE | 2018-05-11 07:05 | GDS ---
DISCHARGE DIAGNOSES: 1. Klebsiella bacteremia thought secondary to a biliary source. 2. Hyperbilirubinemia. 3. Chronic portal vein thrombosis. 4. History of pancreatic cancer, status post Whipple. CONSULTANTS: 1. Dr. Pollo Amato, Infectious Disease. 2. Dr. Chano Osborne, Oncology. HISTORY OF DETAILS: Didi see history and physical dated May 08, 2018. In brief, the patient is a 58-year-old male with a history of pancreatic cancer, who is status post Whipple and chemotherapy, who presented to the emergency department with fever and rigors. He was initially treated with stuart penem to cover for a possible biliary source and was admitted to the hospital for further management. HOSPITAL COURSE: The patient was admitted to the Cancer Care Unit. His blood cultures grew Klebsiel la pneumoniae. Infectious Disease consult was obtained. He has had 1 previous episode of Klebsiella bacteremia a year ago. It was thought the most likely etiology for his recurrent bacteremia was cho langitis or a biliary source despite no evidence of obstructive biliary disease. Consideration was g iven to his port as a source, and this was removed. He was transitioned from meropenem to ertapenem, and ultimately he was found to be fluoroquinolone susceptible. Therefore, he will discharge [facility] a total 14 days of therapy with oral Levaquin. He did undergo MRCP on May 09, although th is was a suboptimal imaging, but did show findings consistent with possibly periportal edema versus a focal cholangitis. However, there was no evidence of intrahepatic biliary ductal dilatation. [facility] er chart review revealed his portal vein thrombosis has actually been present since January of 2018. There has been no evidence of propagation or worsening of the clot. Given the chronicity of this sma ll portal vein thrombosis, it is not recommended by Hematology that he be anticoagulated at this time . He should have close outpatient followup with surveillance imaging to follow its stability. His f ollowup blood cultures remained negative. He will have close followup with Infectious Disease. DISPOSITION: The patient was discharged home in stable condition. FOLLOWUP: 1. Dr. Pollo Amato, Infectious Disease. 2. Andry Dukes, Oncology. 3. Dr. Alpesh Ordaz, Primary Care. DISCHARGE MEDICATIONS: Please see [facility] for completed outpatient medication list. New medications on discharge include: 1. Levofloxacin 750 mg p.o. daily, #11, no refills, to complete a total of 14 days of therapy. 2. Ibuprofen 400 mg p.o. q.6 hours p.r.n. He will continue his Creon as previously prescribed. /[id number]/MODL
--- NOTE | 2018-05-11 07:46 | SOAPPROG ---
SOAP Progress Note Assessment/Plan: Assessment/Plan: 58 year old male with T3N0 locally advanced pancreatic cancer status post neoadjuvant FOLFIRINOX and Whipple with R0 resection followed by adjuvant Xeloda admitted for gram negative bacteremia(klebsiella). #Klebsiella Bacteremia Had similar presentation in the past in setting of biliary obstruction. CTAP without particular pathology. He is on appropriate antimicrobials and is feeling better. PORT was removed. MRCP without obstruction/abscess or identification of source of infection. Likely cholangitis -okay with transition to oral levaquin to complete 2 weeks of treatment #Chronic PVT Had PV clot, small, since 01/2018 at [facility]. Given chronic without extension or symptoms would not anticoagulate #Pancreatic Cancer status post Whipple with R0 resection No evidence of recurrent disease on U/S, CT and MRI 05/09/18 19:40 05/09/18 19:46 05/11/18 07:43 Subjective: Patient seen 05/10/2018 in AM Patient feels great. No new complaints. No abdominal pain Objective: Vital Signs Temp Pulse Resp BP Pulse Ox 36.6 C 60 16 112/78 95 05/10/18 11:57 05/10/18 11:57 05/10/18 11:57 05/10/18 11:57 05/10/18 11:57 Laboratory Results 05/10/18 04:50 05/10/18 04:50 05/10/18 05/11/18 05/12/18 05:59 05:59 05:59 Intake Total 520 Balance 520 General: non toxic appearing HEENT: PERRL, mild icterus no pallor, oral mucosa moist no lesions Neck: supple, no adenopathy CV: RRR without rubs thrills and gallops Chest: CTA in bilateral posterior lungs Abdomen: soft, nontender, non distended without HSM Extremities; warm and well perfused, no edema ICD10 Worksheet Patient Problems: Problems Problem Status Onset Cholangitis Acute Fever Acute Pancreatic adenocarcinoma Acute
== END 2018-05-10 13:30 | disposition home or self-care (01) | DRG 871 ==
LOC: F1N 08:31
PROVIDERS: ADMIT Student in an Organized Health Care Education/Training Program; ATTEND Student in an Organized Health Care Education/Training Program
PROC: 0JPT0WZ Removal of Totally Implantable Vascular Access Device from Trunk Subcutaneous Tissue and Fascia, Open Approach (ICD-10-PCS; principal; 2018-05-08 17:30)
DX: R78.81 Bacteremia (principal); I81 Portal vein thrombosis; B96.1 Klebsiella pneumoniae [K. pneumoniae] as the cause of diseases classified elsewhere; E80.6 Other disorders of bilirubin metabolism; Z85.07 Personal history of malignant neoplasm of pancreas
CPT/HCPCS: 83010-90; J1335; J1650; J2185

== ENCOUNTER 2018-09-18 17:15 | Inpatient (IN) | payer OTHER ==
--- NOTE | 2018-09-18 17:37 | EDPHY ---
H & P Stated Complaint: Fever/GI issues Time Seen by Provider: 09/18/18 17:36 HPI/ROS: HPI CHIEF COMPLAINT: Fever 102.8. Fatigue HISTORY OF PRESENT ILLNESS: Patient is a 58-year-old male, history of pancreatic cancer status post Whipple, Klebsiella bacteremia, presents emergency room with fever 102.8 at home. Denies any chills or rigors. Complains of fatigue. Took ibuprofen prior to arrival. Denies cough, vomiting or diarrhea. Does complain of fatigue. Past Medical History: Significant medical history for pancreatic cancer, hyperbilirubinemia, portal vein thrombosis, bacteremia Klebsiella Past Surgical History: Whipple procedure Social History: Denies daily use of drugs alcohol tobacco. Family History: Noncontributory ROS REVIEW OF SYSTEMS: 10 Systems were reviewed and negative with the exception of the elements mentioned in the history of present illness. Exam Constitutional triage nursing summary reviewed, vital signs reviewed, awake/ alert. Eyes normal conjunctivae and sclera, EOMI, PERRLA. HENT normal inspection, atraumatic, moist mucus membranes, no epistaxis, neck supple/ no meningismus, no raccoon eyes. Respiratory clear to auscultation bilaterally, normal breath sounds, no respiratory distress, no wheezing. Cardiovascular rate normal, regular rhythm, no murmur, no edema, distal pulses normal. Gastrointestinal soft, non-tender, no rebound, no guarding, normal bowel sounds, no distension, no pulsatile mass. Genitourinary no CVA tenderness. Musculoskeletal no midline vertebral tenderness, full range of motion, no calf swelling, no tenderness of extremities, no meningismus, good pulses, neurovascularly intact. Skin pink, warm, & dry, no rash, skin atraumatic. Neurologic awake, alert and oriented x 3, AAOx3, moves all 4 extremities equally, motor intact, sensory intact, CN II-XII intact, normal cerebellar, normal vision, normal speech. Psychiatric normal mood/affect. Heme/Lymph/Immune no lymphadenopathy. Differential Diagnosis: Includes but is not limited to in a particular order dehydration, acute febrile illness, bacteremia, sepsis, pneumonia, UTI, cholangitis Medical Decision Making: Plan for this patient IV establishment IV fluids, basic labs, lactic acid, blood cultures, chest x-ray and urinalysis, evaluate for sepsis. Re-evaluation: 2125: Patient re-evaluated this time. In terms of workup for her fever I do not have an acute cause of his fever. Blood cultures have been sent. Lactic acid is normal. Given the patient's fever for home 102.8 will observe her overnight. He does have a history of Klebsiella bacteremia. I have consult the hospitalist service Dr. Rao Agrees to admit I have updated patient he agrees for hospital admission. Plan for admission for fever. Bilirubin and alk-phos slightly elevated compared to old. Patient declined chest x-ray. Patient agrees for observation overnight for Fever at home. Hx of Klebsiella bacteremia. Source: Patient - Personal History Current Tetanus/Diphtheria Vaccine: Yes - Medical/Surgical History Hx Asthma: No Hx Chronic Respiratory Disease: No Hx Diabetes: No Hx Cardiac Disease: No Hx Renal Disease: No Hx Cirrhosis: No Hx Alcoholism: No Hx HIV/AIDS: No Hx Splenectomy or Spleen Trauma: No Other PMH: pancreatic cancer jan 05 2017 - Social History Smoking Status: Never smoked Constitutional: Initial Vital Signs Temperature (C) 37.6 C 09/18/18 17:24 Heart Rate 75 09/18/18 17:24 Respiratory Rate 18 09/18/18 17:24 Blood Pressure 106/61 09/18/18 17:24 O2 Sat (%) 94 09/18/18 17:24 O2 Delivery Mode Room Air Allergies/Adverse Reactions: Gadolinium-Containing Contrast Medi Allergy (Mild, Verified 09/18/18 17:28) Vomiting Home Medications: Medication Instructions Recorded Lipase 24,000/Amylase/Protease 1 - 2 cap PO TIDMEAL 09/18/18 [Creon 24 (*)] Medical Decision Making - Data Points Laboratory Results: Laboratory Results 09/18/18 17:52 09/18/18 17:52 Medications Given: Acetaminophen (Tylenol) 650 mg PO Q4HRS PRN PRN Reason: Pain, Mild/Fever, Can Take PO Stop: 03/17/19 22:31 Last Admin: 09/19/18 06:31 Dose: 650 mg Enoxaparin Sodium (Lovenox) 40 mg SC DAILY [facility] Stop: 03/18/19 08:59 Last Admin: 09/19/18 08:25 Dose: 40 mg Discontinued Medications Sodium Chloride (Ns) 1,000 mls @ 0 mls/hr IV EDNOW ONE; Wide Open PRN Reason: Protocol Stop: 09/18/18 17:43 Last Admin: 09/18/18 17:58 Dose: 1,000 mls Sodium Chloride (Ns) 1,000 mls @ 0 mls/hr IV EDNOW ONE; Wide Open PRN Reason: Protocol Stop: 09/18/18 17:43 Last Admin: 09/18/18 17:57 Dose: 1,000 mls Sodium Chloride (Ns) 1,000 mls @ 100 mls/hr IV CONT SIMON Stop: 09/19/18 08:44 Last Admin: 09/18/18 23:08 Dose: 1,000 mls Departure - Departure Disposition: [facility] Acute Clinical Impression: Fever Qualifiers: Fever type: due to other condition Qualified Code(s): R50.81 - Fever presenting with conditions classified elsewhere Condition: Fair
[2018-09-18] MEDS ORDERED: NS 1,000 ML IV ONE ×2 (17:42)
[2018-09-18 18:10] LABS: PLATELET COUNT 145 10^3/uL (150-400)
[2018-09-18 18:59] LABS: INR 1.19 (0.83-1.16); PROTIME(PATIENT) 14.6 SEC (12.0-15.0)
[2018-09-18] MEDS ORDERED: IBUPROFEN 200 MG TAB PO PRN (22:32)
[2018-09-18] MEDS ORDERED: diphenhydrAMINE 25 MG CAP PO PRN (22:32)
[2018-09-18] MEDS ORDERED: ONDANSETRON 4 MG/2 ML VIAL IVP PRN (22:32)
[2018-09-18] MEDS ORDERED: ONDANSETRON DISINTEGRATING 4 MG TAB PO PRN (22:32)
[2018-09-18] MEDS ORDERED: NS 1,000 ML IV SCH (22:45)
--- NOTE | 2018-09-19 01:19 | PDGENHP ---
History and Physical - Chief Complaint Fever - History of Present Illness Source-patient provides history appears reliable. EMR was reviewed and case discussed with ED provider. HPI - this is a pleasant 58-year-old gentleman with past medical history significant for pancreatic cancer status post Whipple procedure and chemotherapy in 2018 now in remission, history of recurrent Klebsiella bacteremia, previous history of portal vein thrombosis who presents emergency department today of fever earlier today. Patient reports that he woke up feeling slightly fatigued and malaise. He went for a nap but did not get any relief. He subsequently had fever to 102.8 measured at home. Patient reports that she gave him 400 mg of ibuprofen x1 which did help bring his fever down to 99 F on arrival to the ED. Patient denies any rhinorrhea sore throat skin lesions Soma nausea or vomiting, diarrhea, urinary symptoms. He denies any rigors which he experience previously when hospitalized for a Klebsiella bacteremia. History Information - Allergies/Home Medication List Allergies/Adverse Reactions: Gadolinium-Containing Contrast Medi Allergy (Mild, Verified 09/18/18 17:28) Vomiting Home Medications: Lipase 24,000/Amylase/Protease [Creon 24 (*)] 1 - 2 cap PO TIDMEAL 09/18/18 [ Last Taken 09/18/18 11:00] I have personally reviewed and updated: family history, medical history, social history, surgical history - Past Medical History cancer (pancreatic) Additional medical history: portal vein thrombosis. hyperbilirubinemia. chronic pain. klebsiella bacteremia x2 - Surgical History Additional surgical history: Whipple - Family History Positive for: cancer Additional family history: ERCP with stents now removed. - Social History Smoking Status: Never smoked Review of Systems Review of Systems: ROS: 10pt was reviewed & negative except for what was stated in HPI & below Physical Exam Physical Exam: Temp Pulse Resp BP Pulse Ox 36.6 C 53 L 16 107/69 94 09/18/18 23:13 09/18/18 23:13 09/18/18 23:13 09/18/18 23:13 09/18/18 23:13 Constitutional: no apparent distress, not in pain, uncomfortable Eyes: PERRL, anicteric sclera, EOMI, scleral injection, No pale conjunctiva Ears, Nose, Mouth, Throat: hearing normal, ears appear normal, dry mucous membranes Cardiovascular: pulses symmetric bilaterally, No edema Peripheral Pulses: 2+: dorsalis-pedis (R), dorsalis-pedis (L) Respiratory: no respiratory distress, no rales or rhonchi, clear to auscultation Gastrointestinal: normoactive bowel sounds, No rebound, No distension Genitourinary: no bladder tenderness Skin: warm, normal color, no rashes or abrasions, abrasion, pressure ulcer Musculoskeletal: full muscle strength, no muscle tenderness, normal joint ROM, pain with ROM Neurologic: AAOx3, sensation intact bilaterally, weakness, numbness, No facial droop Psychiatric: interacting appropriately, not anxious, not encephalopathic, thought process linear, No suicidal ideation, No agitated, No poor insight, No poor memory Lymph, Heme, Immunologic: no cervical LAD, no supraclavicular LAD Lab Data & Imaging Review 09/18/18 17:52 09/18/18 17:52 WBC 9.22 10^3/uL (3.80-9.50) 09/18/18 17:52 RBC 4.94 10^6/uL (4.40-6.38) 09/18/18 17:52 Hgb 14.8 g/dL (13.7-17.5) 09/18/18 17:52 Hct 43.6 % (40.0-51.0) 09/18/18 17:52 MCV 88.3 fL (81.5-99.8) 09/18/18 17:52 MCH 30.0 pg (27.9-34.1) 09/18/18 17:52 MCHC 33.9 g/dL (32.4-36.7) 09/18/18 17:52 RDW 12.2 % (11.5-15.2) 09/18/18 17:52 Plt Count 145 10^3/uL (150-400) L 09/18/18 17:52 MPV 11.5 fL (8.7-11.7) 09/18/18 17:52 Neut % (Auto) 79.2 % (39.3-74.2) H 09/18/18 17:52 Lymph % (Auto) 9.1 % (15.0-45.0) L 09/18/18 17:52 Bacon % (Auto) 11.0 % (4.5-13.0) 09/18/18 17:52 Eos % (Auto) 0.1 % (0.6-7.6) L 09/18/18 17:52 Baso % (Auto) 0.3 % (0.3-1.7) 09/18/18 17:52 Nucleat RBC Rel Count 0.0 % (0.0-0.2) 09/18/18 17:52 Absolute Neuts (auto) 7.30 10^3/uL (1.70-6.50) H 09/18/18 17:52 Absolute Lymphs (auto) 0.84 10^3/uL (1.00-3.00) L 09/18/18 17:52 Absolute Monos (auto) 1.01 10^3/uL (0.30-0.80) H 09/18/18 17:52 Absolute Eos (auto) 0.01 10^3/uL (0.03-0.40) L 09/18/18 17:52 Absolute Basos (auto) 0.03 10^3/uL (0.02-0.10) 09/18/18 17:52 Absolute Nucleated RBC 0.00 10^3/uL (0-0.01) 09/18/18 17:52 Immature Gran % 0.3 % (0.0-1.1) 09/18/18 17:52 Immature Gran # 0.03 10^3/uL (0.00-0.10) 09/18/18 17:52 PT 14.6 SEC (12.0-15.0) 09/18/18 17:52 INR 1.19 (0.83-1.16) H 09/18/18 17:52 APTT 28.7 SEC (23.0-38.0) 09/18/18 17:52 VBG Lactic Acid 0.9 mmol/L (0.7-2.1) 09/18/18 17:52 Sodium 137 mEq/L (135-145) 09/18/18 17:52 Potassium 3.5 mEq/L (3.5-5.2) 09/18/18 17:52 Chloride 101 mEq/L (97-110) 09/18/18 17:52 Carbon Dioxide 25 mEq/l (22-31) 09/18/18 17:52 Anion Gap 11 mEq/L (6-14) 09/18/18 17:52 BUN 13 mg/dL (7-23) 09/18/18 17:52 Creatinine 0.9 mg/dL (0.7-1.3) 09/18/18 17:52 Estimated GFR > 60 09/18/18 17:52 Glucose 104 mg/dL (70-100) H 09/18/18 17:52 Calcium 9.0 mg/dL (8.5-10.4) 09/18/18 17:52 Total Bilirubin 3.1 mg/dL (0.1-1.4) H 09/18/18 17:52 Conjugated Bilirubin 0.2 mg/dL (0.0-0.5) 09/18/18 17:52 Unconjugated Bilirubin 2.9 mg/dL (0.0-1.1) H 09/18/18 17:52 AST 40 IU/L (17-59) 09/18/18 17:52 ALT 98 IU/L (21-72) H 09/18/18 17:52 Alkaline Phosphatase 179 IU/L (38-126) H 09/18/18 17:52 Total Protein 6.7 g/dL (6.3-8.2) 09/18/18 17:52 Albumin 3.8 g/dL (3.5-5.0) 09/18/18 17:52 Lipase < 10 IU/L (23-300) L 09/18/18 17:52 Urine Color YELLOW 09/18/18 20:05 Urine Appearance CLEAR 09/18/18 20:05 Urine pH 5.0 (5.0-7.5) 09/18/18 20:05 Ur Specific [place] 1.018 (1.002-1.030) 09/18/18 20:05 Urine Protein NEGATIVE (NEGATIVE) 09/18/18 20:05 Urine Ketones 1+ (NEGATIVE) H 09/18/18 20:05 Urine Blood NEGATIVE (NEGATIVE) 09/18/18 20:05 Urine Nitrate NEGATIVE (NEGATIVE) 09/18/18 20:05 Urine Bilirubin NEGATIVE (NEGATIVE) 09/18/18 20:05 Urine Urobilinogen NEGATIVE EU (0.2-1.0) 09/18/18 20:05 Ur Leukocyte Esterase NEGATIVE (NEGATIVE) 09/18/18 20:05 Urine Glucose NEGATIVE (NEGATIVE) 09/18/18 20:05 Visualized and Interpreted Chest x-ray results: Yes Chest X-Ray results: no infiltrate, normal heart size Visualized and Interpreted imaging results: Yes Visualized and Interpreted EKG results: Yes EKG Interpretation: Positive for: normal sinsus rhythm. Negative for: T waves inversion Assessment & Plan Assessment: this is a pleasant 58-year-old gentleman with past medical history significant for pancreatic cancer status post Whipple procedure and chemotherapy in 2018 now in remission, history of recurrent Klebsiella bacteremia, previous history of portal vein thrombosis who presents emergency department today of fever earlier today. #Fever (Acute) - pain patient without any additional accompanying symptoms. no evidence of respiratory illness or abdominal pain. s/p blood cultures x 2. patient without any evidence of SIRS/sepsis but continues to feel fatigued. hold off on antibiotics. check procalcitonin in AM. repeat AM labs. await culture results. #hx of pancreatic cancer in remission. followed by Dr. Dukes. consult onc in AM with abnormal lfts/bilirubin which have been variable for several weeks. MRI completed 08/22/2018 without acute change. abdomen soft and benign on exam. no additional imaging at this point pending AM labs. #hyperbilirubinemia - repeat in AM. #lfts - improved compared to August 2018. MRI imaging without any acute changes. FEN - IVF overnight. encourage po hydration. electrolyte monitoring and replacement prn. PPX - SCDs. lovenox. COR - FULL. Dispo - Patient admitted to observation on med/surg floor pending blood cultures
[2018-09-19 04:50] LABS: PLATELET COUNT 126 10^3/uL (150-400)
[2018-09-19] MEDS: ACETAMINOPHEN 325 MG TAB PO PRN ×3 (06:31→20:59)
[2018-09-19] MEDS: ENOXAPARIN 40 MG/0.4 ML SYR SC SCH (08:25)
--- NOTE | 2018-09-19 09:40 | ASMTCASEMG ---
Living Arrangements What is your living Answers: With Spouse arrangement? Who do you live with? Type Of Residence What kind of residence do Answers: House you live in? Discharge Plan Comments Coordination Status Comments Notes: Patient is a 58yo male with a hx of pancreatic cancer now in remission who presents to [facility] with a fever. He has been admitted OBS. No therapies ordered at this time. Patient will likely d/c home independently with his . CM will follow. Date Signed: 09/19/2018 09:39 AM Electronically Signed By:Sandra Horan LCSW
[2018-09-19] MEDS: LIPASE 24,000/AMYLASE/PROTEASE (CREON) 1 CAP PO SCH ×2 (12:40→17:46)
--- NOTE | 2018-09-19 15:51 | HOSPPROG ---
Hospitalist Progress Note Assessment/Plan: 58 year old male with pmh of pancreatic cancer status post whipple and recurrent klebsiella bacteremia admitted with fevers and chills. this is a pleasant 58-year-old gentleman with past medical history significant for pancreatic cancer status post Whipple procedure and chemotherapy in 2018 now in remission, history of recurrent Klebsiella bacteremia, previous history of portal vein thrombosis who presents emergency department today of fever earlier today. #Fever (Acute) -no localizing symptoms. Does have a hyperbilirubinemia of 3 with mild transaminitis. Chart reviewed, previous blood cultures positive for Klebsiella which was essentially pansensitive. Case discussed with Infectious Disease who thinks it is reasonable to restart antibiotics given his recurrent fevers and history. -start Rocephin -monitor cultures -infectious Disease consulted for assistance #hx of pancreatic cancer in remission. followed by Dr. Dukes. consult onc in AM with abnormal lfts/bilirubin which have been variable for several weeks. MRI completed 08/22/2018 without acute change. abdomen soft and benign on exam. no additional imaging at this point pending AM labs. #hyperbilirubinemia - has an elevated unconjugated bilirubin of 3 with a mild transaminitis. No abdominal pain. Patient called his physicians at [facility] who think that this is likely the result of a biliary stricture. Given that, I have placed a consult to Gastroenterology for consideration of an MRCP/ERCP #lfts -repeat LFTs are about the same. No localizing symptoms. Discussing with Gastroenterology. FEN -saline, regular diet. PPX - SCDs. lovenox. COR - FULL. Dispo - change to inpatient for further evaluation of fever, hyperbilirubinemia and transaminitis. Subjective: feels tired, but no ab pain, tolerating po. Objective: Vital Signs Temp Pulse Resp BP Pulse Ox 39.1 C H 88 16 118/76 91 L 09/19/18 15:35 09/19/18 14:57 09/19/18 14:57 09/19/18 14:57 09/19/18 14:57 Laboratory Results 09/19/18 04:05 09/19/18 04:05 09/18/18 09/19/18 09/20/18 05:59 05:59 05:59 Intake Total 2800 Output Total 500 Balance 2300 PT 14.6 SEC (12.0-15.0) 09/18/18 17:52 INR 1.19 (0.83-1.16) H 09/18/18 17:52 - Physical Exam Constitutional: no apparent distress, appears nourished, not in pain Eyes: PERRL, anicteric sclera, EOMI Ears, Nose, Mouth, Throat: moist mucous membranes, hearing normal, ears appear normal, no oral mucosal ulcers Cardiovascular: regular rate and rhythym, no murmur, rub, or gallop Respiratory: no respiratory distress, no rales or rhonchi, clear to auscultation Gastrointestinal: normoactive bowel sounds, soft, non-tender abdomen, no palpable masses Genitourinary: no bladder fullness, no bladder tenderness, no renal bruits Skin: no rashes or abrasions, no fluctuance, no induration Musculoskeletal: full muscle strength, no muscle tenderness, normal joint ROM Neurologic: AAOx3, sensation intact bilaterally Psychiatric: interacting appropriately, not anxious, not encephalopathic, thought process linear Lymph, Heme, Immunologic: no cervical LAD, no supraclavicular LAD ICD10 Worksheet Patient Problems: Problems Problem Status Onset Fever Acute Cholangitis Acute Pancreatic adenocarcinoma Acute
--- NOTE | 2018-09-19 18:14 | PDMN ---
Medical Necessity Medical necessity: [facility] Systemic or Infectious Condition: 58 yo presents w / fever in known setting of pancreatic ca s/p whipple and chemo in 2018. Further eval shows hyperbilirubinemia total bili 3.1 and transaminitis. Initially OBS for workup and tx but pt requires >2MN stay meeting [facility] IP criteria as pt LFTs remain elevated, BC pending, pt cont to have fevers 39.3C after OBS care and IV antibx, pt requiring ongoing IV antibx beyond OBS care. ID consult pending. Pt high risk given Hx (see below). Hx Klebsiella bacteremia x2, portal vein thrombosis. Change to IP status 09/19/18@1730 per MD order.
[2018-09-20 05:36] LABS: PLATELET COUNT 121 10^3/uL (150-400)
[2018-09-20 07:35] VITALS: BP 115/76
[2018-09-20] MEDS: LIPASE 24,000/AMYLASE/PROTEASE (CREON) 1 CAP PO SCH (07:54)
[2018-09-20] MEDS: ENOXAPARIN 40 MG/0.4 ML SYR SC SCH (09:08)
--- NOTE | 2018-09-20 10:56 | PCMIDPN ---
Assessment/Plan: # Febrile illness with symptoms c/w past bacteremia, strong suspicion for biliary source. Much better after 2 doses ceftriaxone --dc on empiric levoflox to complete 8 more days, start levofloxacin 750mg daily on 09/21 --follow up with GI/surgery at due to recurrent nature of illness likely related to biliary tree, likely needs ERCP or MRCP. --reviewed Abx risks --discharge okay from ID standpoint Discussed possible side effects of Levaquin, including photosensitivity and interaction with cations including calcium, zinc and magnesium. Patient is also advised to take with small amount food to minimize risk of nausea and avoid significant sun exposure by wearing hat, sunscreen. Levaquin and other antibiotics in this class have been associated with VERY RARE but disabling and potentially irreversible serious adverse reactions that have occurred together, including tendinitis and tendon rupture, peripheral neuropathy, and confusion. Discontinue levofloxacin immediately if you develop a serious reaction and call our office. See full dictation Objective: Vital Signs Temp Pulse Resp BP Pulse Ox 36.7 C 92 16 115/76 94 09/20/18 07:34 09/20/18 07:34 09/20/18 07:34 09/20/18 07:34 09/20/18 07:34 Laboratory Results 09/20/18 04:30 09/20/18 09:20 09/19/18 09/20/18 09/21/18 05:59 05:59 05:59 Intake Total 400 Balance 400 ICD10 Worksheet Patient Problems: Problems Problem Status Onset Cholangitis Acute Fever Acute Pancreatic adenocarcinoma Acute
--- NOTE | 2018-09-20 14:27 | GCON ---
[f rep st] CONSULTATION INFECTIOUS DISEASE CONSULTATION DATE OF CONSULTATION: 09/20/2018 REFERRING PHYSICIAN: Pipo Mancini MD REASON FOR CONSULTATION: Febrile illness. HISTORY OF PRESENT ILLNESS: This is a 58-year-old male with T3 N0 pancreatic cancer, status post Whipple in July of 2017, with neoadjuvant chemotherapy last received December of 2017, whose past ID history is pertinent for Klebsiella bacteremia in May of 2017, prior to Whipple and a subsequent episode in 2017, who was in his usual state of health until approximately about 1 month ago when there has been a slight decline in his weight and his cognitive abilities. The patient's symptoms worsened on September 18 2018 when he developed a high fever to almost 103, malaise, but denied abdominal pain, nausea, vomiting. His also felt she noticed a worsening jaundice. The patient was called on- call and was recommended that patient go to the emergency room. Patient feels these symptoms are exactly the same has prior bacteremia. In the emergency room, the patient was found to have a normal white count, low platelets and elevated bilirubin, primarily unconjugated with a mildly elevated ALT and alkaline phosphatase. No abdominal pain and no imaging was performed during this hospitalization. Further, the patient had blood cultures which are no growth to date at 36 hours. Yesterday due to a very similar pattern of past episodes of Klebsiella bacteremia, the patient was started on ceftriaxone and he describes a melt-away phenomenon of his symptoms and continues to feel well today and desires to go home. Further, his bilirubin is slightly improved today. PAST MEDICAL HISTORY: T3 N0, Whipple. He has a portal small portal vein thrombosis, not on anticoagulation. Two prior episodes of Klebsiella bacteremia , chronic elevated unconjugated bilirubin. PAST SURGICAL HISTORY: A Whipple was performed in July of 2017. FAMILY HISTORY: Positive for multiple types of cancer including pancreatic. SOCIAL HISTORY Nonsmoker. Patient does telecom. No recent travel. He is . He is an avid cyclist. Allergies: gadolinium containing contrast causes mild nausea Medications: ceftriaxone 1 g IV daily and pancreatic enzyme REVIEW OF SYSTEMS: A complete 10-point review of systems was performed and is negative except as mentioned in the HPI. In addition, patient's chemo was last in December of 2017. PHYSICAL EXAM: VITAL SIGNS: The patient's blood pressure was 115/76, heart rate 92, respiratory rate 16, saturation 94% on room air, temperature 36.7. GENERAL: This is a very pleasant, interactive male in no acute distress. HEENT: Pupils are reactive bilaterally, possible mild jaundice. Oropharynx: Good dentition. Moist mucous membranes. No ulcerations or exudates. NECK: Supple. No lymphadenopathy. CARDIOVASCULAR: Regular rate. No murmurs. CHEST: Clear to auscultation bilaterally. ABDOMEN: Scaphoid, soft, nontender. He had a well- healed midline surgical incision. Liver and spleen were nonpalpable. EXTREMITIES : No clubbing, cyanosis, or edema. No swelling. SKIN: He had no peripheral stigmata of endocarditis nor chronic liver disease. NEUROLOGIC: He is alert and oriented x4, moving all 4 extremities equally. LABORATORY: White count 5.6, hematocrit 41, platelets of 121, 59% neutrophils, 25% lymphocytes. INR 1.1. Lactate was normal. Creatinine 0.8, glucose 183, total bilirubin 2.1, AST 38, ALT 78, alkaline phosphatase 129, albumin 3.0. Procalcitonin 0.28. No imaging. ASSESSMENT AND PLAN: 58-year-old male with pancreatic cancer, status post Whipple with 2 prior episodes of Klebsiella bacteremia, although one was prior to Whipple, now with a clinical syndrome very similar to past episodes, minus lack of positive blood cultures. Very similar symptomatology plus remarkable response clinically to antibiotic therapy suggestive of recurrent disease due to the biliary tree. Therefore, would treat as a bacteremia equivalent. Slightly elevated LFTs and lower platelets may be related to infection and/or chronic obstruction. Recommendations 1) Will defer to [facility] team for further imaging, but this likely warrants ERCP or MRCP to possibly mitigate mild chronic obstructive process. 2) okay to discontinue ceftriaxone. Would recommend continuing therapy with Levaquin 750mg daily for 8 more days, starting his dose tomorrow, September 21. Extensively reviewed side effects relating to levofloxacin including photosensitivity, interaction with cations, and rare side effects including tendon rupture, peripheral neuropathy, confusion and hypoglycemia. Greater than 55 minutes spent on this patients care, greater than 50% of time spent counseling, educating, and coordinating care regarding the above mentioned plan. Thank you for this consultation. /[id number]/MODL AND [id number] [facility]
--- NOTE | 2018-09-20 16:21 | PDDCSUM ---
Discharge Summary Discharge Summary: Discharge diagnosis Fever of unknown origin Transaminitis Hyperbilirubinemia History of Klebsiella bacteremia History of pancreatic cancer Patient is a 58-year-old male with past medical history of recurrent episodes of Klebsiella bacteremia presumed to be from a biliary source who presented to the emergency room with fevers as high as 103 degrees F. Blood cultures were obtained the patient was monitored. He continued to have fevers. Infectious Disease was consulted who recommended starting antibiotics with therapy based on previous cultures. He was started on Rocephin after review of his chart showing Klebsiella that was pansensitive. His symptoms resolved rapidly with fevers resolving after starting antibiotics. He had a hyperbilirubinemia with unconjugated bilirubin of 3 on admission and transaminitis. In reviewing his chart the seemed to be slightly worse than labs measured about a month prior to admission. The patient follows at [facility] and his physicians at [facility] were contacted who felt that his symptoms and lab abnormalities likely reflected a stricture. The patient wished to follow up at [facility] rather than having an MRCP here. Infectious Disease recommended completing a course of levofloxacin. He was discharged home with a prescription for levofloxacin 750 mg to complete 8 further days and the recommendation to follow up with [facility] as soon as possible for MRCP and ERCP. On the day of discharge his bilirubin and LFTs had improved substantially. Disposition home indepenent New medications Levofloxacin 750 Qd X 8 days I spent over 30 minutes on the discharge of this patient
== END 2018-09-20 12:17 | disposition home or self-care (01) | DRG 864 ==
LOC: F1N 21:58 → OBSVTOIN 09-19 17:30
PROVIDERS: ADMIT Internal Medicine; ATTEND Internal Medicine
DX: R50.9 Fever, unspecified (principal); R74.0 Nonspecific elevation of levels of transaminase and lactic acid dehydrogenase [LDH]; E80.6 Other disorders of bilirubin metabolism; Z85.07 Personal history of malignant neoplasm of pancreas
CPT/HCPCS: G0378; J0696; J1650